=== PATIENT | male | born 1985 | race Caucasian/White ===

== ENCOUNTER 2023-07-30 11:30 | Outpatient (RCR) | payer BC, SELFPAY | END 2023-11-27 23:59 | disposition home or self-care (01) | PROVIDERS: PCP Family Medicine; Visit Provider Family Medicine | DX: M54.50 Low back pain, unspecified (principal); Z51.89 Encounter for other specified aftercare | CPT/HCPCS: 97110; 97140; 97161 ==

== ENCOUNTER 2023-11-11 07:44 | Day surgery (SDC) | payer BC, SELFPAY ==
[2023-11-11] VITALS (35 sets, daily range): BP systolic 109–162; BP diastolic 53–85; PULSE 60–92; RESP 14–18; TEMP 36.5–37.7; O2SAT 93–100; BMI 26.4
--- NOTE | 2023-11-11 08:16 | CT_ITS ---
Patient: STELLA MILLER Facility:?[facility] Patient ID:?[id number] Site Patient ID:?[id number]. Site :?[id number] Study:?CT-Abdomen/Pelvis w/ 98cc [id number] 8:57:36 AM Ordering Physician:Darnell Rhodes Final Report: Indication: Right lower quadrant pain Technique: CT abdomen and pelvis with IV contrast. Multiplanar reformats are included. Contrast: 98 mL Isovue [address] all [address] scans at this facility use dose modulation, iterative reconstruction, and/or weight-based dosing when appropriate to reduce radiation dose to as low as reasonably achievable. Comparison: None Findings: Inflammatory process centered at the ileocecal junction and cecal tip. The terminal ileum is mildly inflamed. The cecum is mildly inflamed. Both the appendiceal base and tip are encased with the inflammation but the midportion of the appendix is actually normal. See this in front of the kidney on series 2, image 68. Overall the inflammatory mass measures about 2 x 2 x 2 centimeters. There is inflammatory stranding without a drainable collection. Away from this area the bowel has a normal appearance. Lung bases are clear. The liver gallbladder and bile ducts are normal. The pancreas is normal. The spleen is normal. The adrenal glands are normal. The kidneys are normal. No cyst or mass. No urinary tract dilatation. The urinary bladder is normal. No pelvic cyst or mass. No adenopathy or ascites. Periumbilical fat containing hernia. No fractures or worrisome focal bony lesions. Impression: Inflammatory process involving the terminal ileum, ileocecal junction, cecum, and appendix base and tip. Unclear if this is an appendix primary problem or terminal ileum primary problem. There are no findings specific to Crohn`s disease. No drainable abscess. Please note that all CT scans at this facility use dose modulation, iterative reconstruction, and/or weight-based dosing when appropriate to reduce radiation dose to as low as reasonably achievable. Dictated by Claudia Gallardo MD @ 11/11/2023 9:12:42 AM Signed by:?Claudia Gallardo MD @11/11/2023 9:12:42 AM (Electronic Signature)
--- NOTE | 2023-11-11 08:17 | ED.GENADULT ---
HPI - General Adult General Chief complaint: Abdominal Pain Stated complaint: abdominal pain Time Seen by Provider: 11/11/23 07:48 History of Present Illness HPI narrative: Patient is a 37 year white male who has a history of ADHD, he is on amphetamine salt, he has had some periumbilical abdominal pain starting on Sunday, this radiated then she down his right lower quadrant. He has had no dysuria frequency or hematuria, no constipation he has had a little bit of loose stool this morning. But no recent diarrhea other than this morning. He has had history of GI ulcers, no abdominal surgery. He reports that when he came in in his car today with his he had some tenderness his belly when they hit bumps. He last ate last evening. Does not have much of an appetite. He has not vomited. Does not feel nauseated currently. He does report the pain is worse than yesterday. No chest pain, no breathing problem, no fevers or chills. He has history tree in the past of lumbar back pain, and stomach ulcers by his report. He also has ADHD. Related Data Home Medications Medication Instructions Recorded Confirmed dextroamphetamine-amphetamine 20 1 tab PO BID 11/11/23 11/11/23 mg tablet sildenafil (pulm.hypertension) 20 20 - 40 mg PO DAILY PRN 11/11/23 11/11/23 mg tablet Previous Rx's Medication Instructions Recorded hydrocodone 5 mg-acetaminophen 325 1 tab PO Q6H PRN pain #15 tabs 11/11/23 mg tablet sennosides 8.6 mg capsule (senna) 8.6 mg PO DAILY PRN constipation 11/11/23 #90 caps Allergies Allergy/AdvReac Type Severity Reaction Status Date / Time No Known Drug Allergies Allergy Verified 07/17/23 13:20 Review of Systems Status of ROS: Reports: 6 or more systems reviewed and unremarkable except as noted in History and below [facility] Medical History Back Pain ?M54.9 - Dorsalgia, unspecified (ICD-10) Social History Smoking Status: Never smoker How often do you have a drink containing alcohol: 4 or more times a week How many standard drinks containing alcohol do you have on a typical day: 3 or 4 How often do you have six or more drinks on one occasion: Weekly AUDIT-C Alcohol total score: 8 Non-prescribed substance use: denies use Exam Narrative: Exam Narrative: Objective: Patient's vital signs are unremarkable and within normal limits He is alert orient x3 HEENT unremarkable neck supple nodes chest clear Heart rhythm regular heart murmur Abdomen benign soft mild right lower quadrant tenderness to palpation and he has got positive guarding with some mild rigidity in the right lower quadrant. Denies symptoms Extremities normal neurologic nonfocal Const: Vital Signs, click to edit/add: Vital Signs - 24 hr 11/11/23 08:02 11/11/23 08:16 11/11/23 08:33 Temperature 98.8 F Pulse Rate 76 Pulse Rate [Pulse Oximeter] 92 Respiratory Rate 16 Blood Pressure Blood Pressure [Ri ght Arm] Blood Pressure [Ri ght Upper Arm] 125/71 Pulse Oximetry 96 97 97 Oxygen Delivery Me thod Room Air 11/11/23 08:45 11/11/23 09:00 11/11/23 09:02 Temperature Pulse Rate 82 77 77 Pulse Rate [Pulse Oximeter] Respiratory Rate Blood Pressure 141/73 H Blood Pressure [Ri ght Arm] Blood Pressure [Ri ght Upper Arm] Pulse Oximetry 96 98 98 Oxygen Delivery Me thod 11/11/23 09:03 11/11/23 09:15 11/11/23 09:17 Temperature 97.7 F Pulse Rate 76 78 Pulse Rate [Pulse Oximeter] Respiratory Rate Blood Pressure Blood Pressure [Ri ght Arm] Blood Pressure [Ri ght Upper Arm] Pulse Oximetry 98 99 Oxygen Delivery Me thod 11/11/23 09:30 11/11/23 09:45 11/11/23 10:00 Temperature Pulse Rate 69 83 68 Pulse Rate [Pulse Oximeter] Respiratory Rate Blood Pressure Blood Pressure [Ri ght Arm] Blood Pressure [Ri ght Upper Arm] Pulse Oximetry 97 95 100 Oxygen Delivery Me thod 11/11/23 10:02 11/11/23 12:44 11/11/23 12:50 Temperature 98.3 F Pulse Rate 79 60 62 Pulse Rate [Pulse Oximeter] Respiratory Rate 14 18 Blood Pressure 120/71 162/82 H 147/76 H Blood Pressure [Ri ght Arm] Blood Pressure [Ri ght Upper Arm] Pulse Oximetry 97 96 96 Oxygen Delivery Me thod Room Air 11/11/23 12:55 11/11/23 13:00 11/11/23 13:05 Temperature Pulse Rate 60 61 61 Pulse Rate [Pulse Oximeter] Respiratory Rate 14 14 15 Blood Pressure 144/72 H 141/70 H 137/71 Blood Pressure [Ri ght Arm] Blood Pressure [Ri ght Upper Arm] Pulse Oximetry 96 96 95 Oxygen Delivery Me thod 11/11/23 13:10 11/11/23 13:15 11/11/23 13:20 Temperature 98.9 F 98.4 F Pulse Rate 60 61 60 Pulse Rate [Pulse Oximeter] Respiratory Rate 14 14 14 Blood Pressure 140/66 H 136/67 Blood Pressure [Ri ght Arm] 142/76 H Blood Pressure [Ri ght Upper Arm] Pulse Oximetry 94 94 97 Oxygen Delivery Me thod Room Air Room Air 11/11/23 13:30 11/11/23 13:45 11/11/23 14:00 Temperature 98.4 F 98.4 F 98.4 F Pulse Rate Pulse Rate [Pulse Oximeter] 63 65 72 Respiratory Rate 14 16 16 Blood Pressure Blood Pressure [Ri ght Arm] 140/75 H 147/67 H 137/63 Blood Pressure [Ri ght Upper Arm] Pulse Oximetry 96 94 93 Oxygen Delivery Me thod Room Air Room Air Room Air 11/11/23 14:15 11/11/23 14:30 11/11/23 15:00 Temperature 98.4 F 98.6 F 98.6 F Pulse Rate Pulse Rate [Pulse Oximeter] 72 77 87 Respiratory Rate 16 16 16 Blood Pressure Blood Pressure [Ri ght Arm] 137/70 140/78 H 143/81 H Blood Pressure [Ri ght Upper Arm] Pulse Oximetry 93 93 93 Oxygen Delivery Me thod Room Air Room Air Room Air 11/11/23 16:00 11/11/23 17:00 11/11/23 18:00 Temperature 98.2 F 99.1 F 99.9 F H Pulse Rate Pulse Rate [Pulse Oximeter] 89 88 92 Respiratory Rate 16 16 16 Blood Pressure Blood Pressure [Ri ght Arm] 145/73 H 136/85 109/62 Blood Pressure [Ri ght Upper Arm] Pulse Oximetry 97 98 96 Oxygen Delivery Me thod Room Air Room Air Room Air 11/11/23 19:00 11/11/23 19:00 11/11/23 20:56 Temperature 99.9 F H 99.0 F 99.0 F Pulse Rate Pulse Rate [Pulse Oximeter] 86 Respiratory Rate 16 Blood Pressure Blood Pressure [Ri ght Arm] 117/67 Blood Pressure [Ri ght Upper Arm] Pulse Oximetry 96 Oxygen Delivery Me thod Room Air 11/11/23 21:45 11/11/23 22:11 11/11/23 22:27 Temperature 99.0 F 99.0 F 99 F Pulse Rate Pulse Rate [Pulse Oximeter] 76 Respiratory Rate 16 Blood Pressure Blood Pressure [Ri ght Arm] 121/53 L Blood Pressure [Ri ght Upper Arm] Pulse Oximetry 96 Oxygen Delivery Me thod Room Air 11/12/23 03:23 11/12/23 03:32 Temperature 99 F 98.8 F Pulse Rate Pulse Rate [Pulse Oximeter] 66 Respiratory Rate 16 Blood Pressure Blood Pressure [Ri ght Arm] 142/62 H Blood Pressure [Ri ght Upper Arm] Pulse Oximetry 97 Oxygen Delivery Me thod Room Air Course Vital Signs Vital signs: Initial Vital Signs Temperature 98.8 F 11/11/23 08:02 Temperature Source Temporal Artery Scan 11/11/23 08:02 Pulse Rate 92 11/11/23 08:02 Respiratory Rate 16 11/11/23 08:02 Blood Pressure 125/71 11/11/23 08:02 Blood Pressure Mean 89 11/11/23 08:02 Blood Pressure Position Sitting 11/11/23 08:02 Pulse Oximetry 96 11/11/23 08:02 Oxygen Delivery Method Room Air 11/11/23 08:02 Vital Signs Temperature 98.8 F 11/11/23 08:02 Pulse Rate 92 11/11/23 08:02 Respiratory Rate 16 11/11/23 08:02 Blood Pressure 125/71 11/11/23 08:02 Pulse Oximetry 96 11/11/23 08:02 Oxygen Delivery Method Room Air 11/11/23 08:02 Temperature 98.8 F 11/12/23 03:32 Pulse Rate 66 11/12/23 03:32 Respiratory Rate 16 11/12/23 03:32 Blood Pressure 142/62 H 11/12/23 03:32 Pulse Oximetry 97 11/12/23 03:32 Oxygen Delivery Method Room Air 11/12/23 03:32 Medications Administered Medications: Generic Name Dose Route Start Last Admin Trade Name Harryq PRN Reason Stop Dose Admin Acetaminophen 650 mg 11/11/23 15:15 11/11/23 19:00 Acetaminophen 325 Mg Tablet PO 650 mg Q4H PRN Administration Pain Hydrocodone Bitart/Acetaminophen 1 - 2 tab 11/11/23 15:15 11/11/23 20:56 Hydrocodone-Acetamin 5-325 Mg 1 Tab PO 2 tab Q4H PRN Administration Pain Hydromorphone HCl 0.1 - 0.5 mg 11/11/23 15:15 11/11/23 17:13 Hydromorphone 0.5 Mg/0.5 Ml Inj IVP 0.5 mg Q2H PRN Administration Pain Lactated Ringer's 1,000 mls @ 125 mls/hr 11/11/23 11:45 11/11/23 22:12 Lactated Ringers 1000 Ml IV 0 mls/hr .Q8H MODE Infusion Piperacillin Sod/Tazobactam 100 mls @ 100 mls/hr 11/11/23 16:00 11/12/23 03:24 Sod 3.375 gm/ Sodium Chloride IVPB 200 mls/hr Q6H MODE Administration Ketorolac Tromethamine 15 mg 11/11/23 15:15 11/12/23 03:23 Ketorolac 15 Mg/Ml Inj IVP 11/16/23 15:14 15 mg Q6H PRN Administration Pain Ondansetron HCl 4 - 8 mg 11/11/23 15:15 11/12/23 03:22 Ondansetron 2 Mg/Ml Inj IVP 4 mg Q8H PRN Administration Nausea And Vomiting Discontinued Medications Generic Name Dose Route Start Last Admin Trade Name Sonu PRN Reason Stop Dose Admin Bupivacaine HCl 30 ml 11/11/23 12:30 11/11/23 12:30 Bupivacaine 0.25% 30 Ml INJECTION 11/11/23 12:31 20 ml ONCE ONE Administration Hydromorphone HCl 1 mg 11/11/23 08:57 11/11/23 09:05 Hydromorphone 0.5 Mg/0.5 Ml Inj IVP 11/11/23 08:58 1 mg ONCE ONE Administration Sodium Chloride 500 mls @ 500 mls/hr 11/11/23 08:15 11/11/23 09:41 0.9 % Sodium Chloride 500 Ml IV 11/11/23 09:14 Infused .Q1H ONE Infusion Piperacillin Sod/Tazobactam 100 mls @ 200 mls/hr 11/11/23 09:38 11/11/23 10:26 Sod 4.5 gm/ Sodium Chloride IVPB 11/11/23 09:39 Infused ONCE ONE Infusion Morphine Sulfate 2 mg 11/11/23 08:30 11/11/23 08:31 Morphine 2 Mg/Ml Inj IVP 11/11/23 08:31 2 mg ONCE ONE Administration Medical Decision Making MDM Narrative Medical decision making narrative: 37-year-old male with 3 day history of abdominal discomfort right lower quadrant pain currently with some indications of mild peritonitis. At this point to rule out NM suspicious for appendicitis. Will check a CT with IV contrast, laboratory studies IV fluid, pain control, will also give the CT as he may have certainly colitis diverticulitis or other intra-abdominal issue, would also get urinalysis. Surgical consult as needed, keep NPO. Addendum: Patient's white count is slightly elevated, he has terminal ileum inflammation as well as base of the appendix inflammation, likely appendicitis. Cannot exclude inflammatory bowel disease. : Our surgeon will come see the patient and likely go to the OR for disposition. She will explain this to the patient. Will start IV Zosyn. Pain control, keep NPO. Admit to same-day surgery and possibly more prolonged admission if needed. Lab Data Labs: Lab Results 11/11/23 11/11/23 Range/Units 08:20 08:23 WBC 14.76 H (4.50-11.00) K/uL RBC 4.96 (4.30-5.90) m/uL Hgb 15.5 (13.5-17.5) gm/dL Hct 45.9 (37.0-53.0) % MCV 93 (80-100) fL MCH 31 (26-34) pg MCHC 34 (32-36) gm/dL RDW Coeff of Hi 12.6 (11.5-15.5) % Plt Count 247 (140-440) K/uL Neut % (Auto) 83.8 H (42.0-72.0) % Lymph % (Auto) 9.1 L (20-44) % [place] % (Auto) 6.4 (0.0-11.0) % Eos % (Auto) 0.5 (0.0-7.0) % Baso % (Auto) 0.1 (0.0-3.0) % Neut # (Auto) 12.40 H (1.7-7.0) K/uL Lymph # (Auto) 1.30 (0.90-2.90) K/uL [place] # (Auto) 0.90 (0.00-0.90) K/UL Eos # (Auto) 0.10 (0.00-0.50) K/uL Baso # (Auto) 0.00 (0.00-0.30) K/uL Abs Immat Gran (auto) 0.00 (0.00-0.30) K/uL Imm/Tot Granulo (auto) 0.1 % Sodium 136 (135-149) mmol/L Potassium 4.4 (3.6-5.1) mmol/L Chloride 103 (96-114) mmol/L Carbon Dioxide 26 (20-32) mmol/L Anion Gap 7 (7-15) mEq/L BUN 14 (5-24) mg/dL Creatinine 0.9 (0.5-1.5) mg/dL Estimated Creat Clear 127.00 Estimated GFR 113 ml/min Glucose 119 H (60-115) mg/dL Calcium 9.5 (8.4-10.6) mg/dL C-Reactive Protein 11.9 H (0.5-1.0) mg/dL Amylase 101 H (18-89) U/L Urine Color Dark yellow (Yellow) Urine Appearance Clear (Clear) Urine pH 8.5 (5.0-8.5) Ur Specific [place] 1.020 (1.000-1.030) Urine Protein Trace A (Negative) Urine Glucose (UA) Negative (Negative) Urine Ketones Negative (Negative) Urine Blood Negative (Negative) Urine Nitrite Negative (Negative) Urine Bilirubin Negative (Negative) Urine Urobilinogen 0.2 (0.2-1.0) Ur Leukocyte Esterase Negative (Negative) Urine RBC 0-2 (0-2) Urine WBC 0-2 (0-5) Ur Squamous Epith Cells Few (None-Few) Urine Bacteria None (None) Discharge Plan Discharge Clinical Impression: Abdominal pain Patient Disposition: Admitted As Observation Condition: Stable Activity Level: No strenuous activity Activity Detail: Activity as tolerated. Avoid strenuous activity. No lifting greater than 20 lb for 2 weeks. Discharge Diet: Regular
[2023-11-11 08:28] LABS: Basophils Percent Auto 0.1 % (0.0-3.0); Eosinophils Percent Auto 0.5 % (0.0-7.0); Hematocrit 45.9 % (37.0-53.0); Hemoglobin* 15.5 gm/dL (13.5-17.5); Immature Granulocytes Pct Auto 0.1 %; Lymphocytes Percent Auto 9.1 % (20-44); Mean Corpuscular HGB Conc 34 gm/dL (32-36); Mean Corpuscular Hemoglobin 31 pg (26-34); Mean Corpuscular Volume 93 fL (80-100); Monocytes Percent Auto 6.4 % (0.0-11.0); Neutrophils Percent Auto 83.8 % (42.0-72.0); Platelet Count* 247 K/uL (140-440); RDW Coefficient of Variation % 12.6 % (11.5-15.5); Red Blood Count 4.96 m/uL (4.30-5.90); White Blood Count* 14.76 K/uL (4.50-11.00)
[2023-11-11 08:29] LABS: Appearance Urine Clear (Clear); Color Urine Dark yellow (Yellow)
[2023-11-11 08:30] LABS: Bilirubin Urine Negative (Negative); Blood Urine Negative (Negative); Glucose Urine Negative (Negative); Ketones Urine Negative (Negative); Leukocyte Esterase Urine Negative (Negative); Nitrite Urine Negative (Negative); Protein Urine Trace (Negative); Urobilinogen Urine 0.2 (0.2-1.0); pH Urine 8.5 (5.0-8.5)
[2023-11-11] MEDS: MORPHINE 2 MG/ML inj IVP (08:31)
[2023-11-11] MEDS: 0.9 % SODIUM CHLORIDE 500 ML 500 ML IV (08:31)
[2023-11-11 08:38] LABS: Slide Review Reflex No
[2023-11-11 08:39] LABS: Chloride* 103 mmol/L (96-114); Potassium* 4.4 mmol/L (3.6-5.1); Sodium* 136 mmol/L (135-149)
[2023-11-11 08:41] LABS: RBC Urine 0-2 (0-2); Squamous Epithelial Cell Urine Few (None-Few); WBC Urine 0-2 (0-5)
[2023-11-11 08:42] LABS: Amylase* 101 U/L (18-89); Anion Gap 7 mEq/L (7-15); Blood Urea Nitrogen* 14 mg/dL (5-24); Carbon Dioxide* 26 mmol/L (20-32); Creatinine* 0.9 mg/dL (0.5-1.5); Estimated Glomerular Filt Rate 113 ml/min
[2023-11-11 08:43] LABS: Calcium* 9.5 mg/dL (8.4-10.6); Glucose* 119 mg/dL (60-115)
[2023-11-11 08:56] LABS: C Reactive Protein* 11.9 mg/dL (0.5-1.0)
[2023-11-11] MEDS: HYDROmorphone 0.5 mg/0.5 ml inj 1 MG IVP (09:05)
[2023-11-11] MEDS: PIPERACILLIN/TAZOBACTAM 4.5 GM in 0.9 % SODIUM CHLORIDE Mini-bag 100 ML IVPB (09:52)
[2023-11-11] MEDS: LACTATED RINGERS 1000 ML 1,000 ML 125 ML IV (11:10)
[2023-11-11] MEDS: BUPIVACAINE 0.25% 30 ML INJECTION (12:30)
--- NOTE | 2023-11-11 12:41 | PM.GSHP ---
History of Present Illness History of Present Illness Date Seen: 11/11/23 Chief complaint: abdominal pain Narrative: Ata Jorgensen is a 37 year old male who presented to the emergency department with complaints of abdominal pain. He states that the pain initially started in the middle of his abdomen and he thought was secondary to stomach ulcers, which he has had in the past. The pain however continued and then moved to the right side. Has increased in intensity and is unlike any pain he has experienced before. He has had a decrease in appetite and some associated nausea, no vomiting. He had diarrhea earlier today. No fevers or chills at home. He has never had surgery before. He denies any personal or family history of inflammatory bowel disease. No problems with anesthesia in his family history. He is a nonsmoker and otherwise healthy. Review of Systems Status of ROS: Reports: 10 or more systems reviewed and unremarkable except as noted in History and below [facility] Medical History Back Pain ?M54.9 - Dorsalgia, unspecified (ICD-10) Social History Smoking Status: Never smoker How often do you have a drink containing alcohol: 4 or more times a week How many standard drinks containing alcohol do you have on a typical day: 3 or 4 How often do you have six or more drinks on one occasion: Weekly AUDIT-C Alcohol total score: 8 Non-prescribed substance use: denies use Meds Home Medications and Allergies Home Medications Medication Instructions Recorded Confirmed Type dextroamphetamine-amphetamine 20 1 tab PO BID 11/11/23 11/11/23 History mg tablet sildenafil (pulm.hypertension) 20 20 - 40 mg PO DAILY PRN 11/11/23 11/11/23 History mg tablet Allergies Allergy/AdvReac Type Severity Reaction Status Date / Time No Known Drug Allergies Allergy Verified 07/17/23 13:20 Exam Narrative: Exam Narrative: General: Alert and oriented, no acute distress Respiratory: Equal breath rise bilaterally, maintained on room air CV: Well perfused Abdomen: Soft, tender palpation right lower quadrant with some guarding, no rebound. Const: Vital Signs, click to edit/add: Vital Signs - 24 hr 11/11/23 08:02 11/11/23 08:16 11/11/23 08:33 Temperature 98.8 F Pulse Rate 76 Pulse Rate [Pulse Oximeter] 92 Respiratory Rate 16 Blood Pressure Blood Pressure [Ri ght Upper Arm] 125/71 Pulse Oximetry 96 97 97 Oxygen Delivery Me thod Room Air 11/11/23 08:45 11/11/23 09:00 11/11/23 09:02 Temperature Pulse Rate 82 77 77 Pulse Rate [Pulse Oximeter] Respiratory Rate Blood Pressure 141/73 H Blood Pressure [Ri ght Upper Arm] Pulse Oximetry 96 98 98 Oxygen Delivery Me thod 11/11/23 09:03 11/11/23 09:15 11/11/23 09:17 Temperature 97.7 F Pulse Rate 76 78 Pulse Rate [Pulse Oximeter] Respiratory Rate Blood Pressure Blood Pressure [Ri ght Upper Arm] Pulse Oximetry 98 99 Oxygen Delivery Me thod 11/11/23 09:30 11/11/23 09:45 11/11/23 10:00 Temperature Pulse Rate 69 83 68 Pulse Rate [Pulse Oximeter] Respiratory Rate Blood Pressure Blood Pressure [Ri ght Upper Arm] Pulse Oximetry 97 95 100 Oxygen Delivery Me thod 11/11/23 10:02 Temperature Pulse Rate 79 Pulse Rate [Pulse Oximeter] Respiratory Rate Blood Pressure 120/71 Blood Pressure [Ri ght Upper Arm] Pulse Oximetry 97 Oxygen Delivery Me thod Results Results Labs: Evidence of leukocytosis, elevated CRP. Abdomen CT scan report/results: report reviewed and image reviewed Progress Note:A&P Assessment and plan (1) Acute appendicitis: Status: Acute Assessment and Plan: The patient presented with a history, exam and imaging findings consistent with acute appendicitis. On CT imaging there is a significant amount of surrounding inflammation around the cecum and terminal ileum, which does increase the patient's risk of needing to convert to an open operation and possible need for ileocecectomy. Included in the differential is also Crohn's disease, although patient does not elicit any significant symptoms of diarrhea/constipation and has no family history. I discussed the treatment options with the patient including non-surgical and surgical options. I recommended laparoscopic appendectomy. The risks of surgery were reviewed with the patient including the risks of bleeding, post-operative wound or intra-abdominal infection, injury to abdominal structures and possible conversion to an open operation. We also discussed anesthetic complications including MN, stroke, respiratory failure and blood clots. The patient voiced an understanding of our conversation, had the opportunity to ask questions, agreed to accept the risks of surgery and asked that we proceed with surgery. -patient to go to the operating room for laparoscopic appendectomy, possible conversion to open, possible ileocecectomy
--- NOTE | 2023-11-11 12:45 | P.GSOP_ITS ---
Operative Note Date of procedure: 11/11/23 Pre-op diagnosis: Acute appendicitis Post-op diagnosis: Same, no evidence of perforation a significant amount of inflammation and fibrinous exudate Type of Procedure: Laparoscopic appendectomy with partial cecectomy Indications: Patient is a 37-year-old male who presented to the emergency department with clinical workup and CT imaging suspicious for acute appendicitis. Risks and benefits of operative intervention were discussed at length with the patient. Risks included but was not limited to: Bleeding, infection, risk of damage to surrounding structures, possible need for additional procedures, possible need to convert to an open operation and postoperative complications such as pneum onia, pulmonary emboli or [place]. All questions and concerns were addressed with the patient agreeing to proceed. Procedure Description: After discussing the risks and benefits of the procedure, the patient signed informed consent.? The operative site was marked and the patient was brought to the operating room and placed on the operating table in supine position.? Care was taken to pad the patient's pressure points.?? The patient was then intubated by anesthesia.?? The operative site was then prepped and draped in the usual sterile fashion.? A time-out was then performed. Entrance to the abdomen was obtained via a 5 mm optical trocar in the left upper quadrant. The abdomen was insufflated and briefly surveyed for any signs of injury. There were none. A 12 mm port was placed lateral to the umbilicus as well as a 5 mm port in the left lower quadrant under direct vision. The patient was then placed in Trendelenburg position with the right side up. The small bowel was inflamed, but not significantly dilated. It was gently moved out of the way and the terminal ileum identified. There was a moderate amount of surrounding inflammation and inflammatory attachments, which were bluntly dissected. The tip of the appendix was brought into view. The mesentery was taken down with the Harmonic device. There was evidence of inflammation thr oughout the body of the appendix and at the base with some cecal involvement. The cecum was gently palpated with laparoscopic devices and appeared inflamed, but with no obvious mass. A small amount of dissection was necessary to free the appendix and cecum from the surrounding pelvic attachments. Two fires of a 60 mm Qustreet-LAVELLE purple load stapler was then used to transect the appendix and a portion of the cecum. The staple lines were inspected for bleeding with a single arterial bleed on the lateral aspect of the staple line. This was controlled with several 5mm clips. The appendix and cecum was then removed from the abdomen using an Endo-Catch bag. The specimen was opened on the back table with evidence of inflammation, but no masses seen. The specimen was then sent to pathology. The 12 mm port site fascia was closed with 0 Vicryl. All other ports were removed under direct visualization. The skin was then closed with absorbable subcuticular suture. Sterile dressings were then applied. Instrument sponge and needle counts were correct at the end of the case. The patient was then woken and transported to the PACU in stable condition. Findings: Inflamed appendix with associated inflammatory changes of the cecum. Anesthesia: GETA Surgeon: Scarlett Day MD Estimated blood loss (mL): 5 Specimen: Appendix Condition: stable Disposition: PACU
--- NOTE | 2023-11-11 12:50 | P.ANES_ITS ---
Anesthesia Charges Start Date/Time Anesthesia Start Date: 11/11/23 Anesthesia Start Time: 11:10 Stop Date/Time Anesthesia Stop Date: 11/11/23 Anesthesia Stop Time: 12:49 Summary Emergency: [facility]
[2023-11-11] MEDS: PIPERACILLIN/TAZOBACTAM 3.375 GM in 0.9 % SODIUM CHLORIDE Mini-bag 100 ML IVPB ×2 (16:04→21:46)
[2023-11-11] MEDS: LACTATED RINGERS 1000 ML 1,000 ML 35 ML IV (16:05)
[2023-11-11] MEDS: KETOROLAC 15 MG/ML inj IVP (16:44)
[2023-11-11] MEDS: HYDROmorphone 0.5 mg/0.5 ml inj IVP (17:13)
[2023-11-11] MEDS: ACETAMINOPHEN 325 MG TABLET 650 MG PO (19:00)
--- NOTE | 2023-11-11 19:35 | PC.NURSE ---
Pt arrived from surgery at 1320. Pt slept for first few hours after surgery. Pt alert and oriented. Pt pleasant and cooperative. Pt had complaints of pain ranging 2-7; see EMAR for intervention. Pt advanced to regular diet and tolerated well. Pt's VSS. Pt urinated. Pt went for walk in hallways x 1 during shift. Pt had family at bedside during shift.
[2023-11-11] MEDS: ONDANSETRON 2 MG/ML inj IVP (20:55)
[2023-11-11] MEDS: HYDROCODONE-ACETAMIN 5-325 MG 1 TAB PO (20:56)
[2023-11-12] MEDS: ONDANSETRON 2 MG/ML inj IVP (03:22)
[2023-11-12 03:23] VITALS: TEMP 37.2
[2023-11-12] MEDS: KETOROLAC 15 MG/ML inj IVP (03:23)
[2023-11-12] MEDS: PIPERACILLIN/TAZOBACTAM 3.375 GM in 0.9 % SODIUM CHLORIDE Mini-bag 100 ML IVPB (03:24)
[2023-11-12 03:32] VITALS: BP 142/62; PULSE 66; RESP 16; TEMP 37.1; O2SAT 97
--- NOTE | 2023-11-12 06:05 | PC.NURSE ---
Pt rested well this night. Up walking halls. Tolerating regular diet. Pain controlled. Steri-strips CDI. Voiding Adequate.
[2023-11-12 08:30] VITALS: BP 126/75; PULSE 53; RESP 18; TEMP 36; O2SAT 94
[2023-11-12] MEDS: HYDROCODONE-ACETAMIN 5-325 MG 1 TAB PO (09:54)
--- NOTE | 2023-11-12 12:16 | PC.NURSE ---
Patient pleasant, alert and oriented. Ambulated and transferred independently. Tolerated regular diet. PRN pain medications given prior to discharge. Patient discharged at 1006. Family wheeled patient out of med/surg in wheelchair.
== END 2023-11-12 10:06 | disposition home or self-care (01) ==
LOC: ED 10:29 → SS 11:19 → MEDSURG 13:55
PROVIDERS: Emergency Provider Family Medicine; PCP Family Medicine; Visit Provider Surgery
PROC: 0DTJ4ZZ Resection of Appendix, Percutaneous Endoscopic Approach (ICD-10-PCS; CPT 44970; principal; 2023-11-11 11:00)
DX: K35.80 Unspecified acute appendicitis (principal)
CPT/HCPCS: 44970; 44238; 00840; 36415; 74177; 80048; 81001; 82150; 85025; 86140; 87086; 88304; 88307; 94761; 99140; 99284; 99285; A9270; J0330; J0665; J1100; J1170; J1171; J1885; J2250; J2270; J2371; J2405; J2543; J2704; J2710; J3010; J7030; J7120; Q9967

== ENCOUNTER 2023-11-13 17:04 | Inpatient (IN) | payer BC, SELFPAY ==
[2023-11-13] VITALS (26 sets, daily range): BP systolic 112–152; BP diastolic 57–94; PULSE 63–95; RESP 18; TEMP 36.8–37.6; O2SAT 95–98; BMI 26.4; BMI 27.7
[2023-11-13 17:40] LABS: Lactate Sepsis w/Reflex* 1.6 mmol/L (0.5-1.9)
[2023-11-13 17:42] LABS: Basophils Absolute Auto 0.02 K/uL (0.00-0.30); Basophils Percent Auto 0.2 % (0.0-3.0); Eosinophils Absolute Auto 0.13 K/uL (0.00-0.50); Eosinophils Percent Auto 1.4 % (0.0-7.0); Hemoglobin* 13.9 gm/dL (13.5-17.5); Immature Granulocytes Abs Auto 0.02 K/uL (0.00-0.30); Immature Granulocytes Pct Auto 0.2 %; Lymphocytes Percent Auto 15.2 % (20-44); Mean Corpuscular HGB Conc 33 gm/dL (32-36); Mean Corpuscular Hemoglobin 31 pg (26-34); Mean Corpuscular Volume 95 fL (80-100); Monocytes Percent Auto 9.2 % (0.0-11.0); Neutrophils Percent Auto 73.8 % (42.0-72.0); Platelet Count* 287 K/uL (140-440); RDW Coefficient of Variation % 12.7 % (11.5-15.5); Red Blood Count 4.44 m/uL (4.30-5.90); White Blood Count* 9.06 K/uL (4.50-11.00)
[2023-11-13 17:43] LABS: Slide Review Reflex No
--- NOTE | 2023-11-13 17:44 | ED_ITS ---
HPI - General Adult General Date Seen: 11/13/23 Chief complaint: Fever Stated complaint: Discharged from [facility] yesterday-101.5F Time Seen by Provider: 11/13/23 17:23 Source: patient, RN notes reviewed and old records reviewed Mode of arrival: ambulatory Limitations: no limitations History of Present Illness HPI narrative: Patient is a 37-year-old male who is status post laparoscopic appendectomy on Sunday, presents to the ER Sunday for evaluation of fever which started today. He has had some body aches, headache. He has a little bit of abdominal pain which started just a little bit ago. He has been eating and drinking okay, appetite perhaps a bit decreased. He did have a normal bowel movement today. He denies urinary symptoms. He has not had chest pain, cough, difficulty jodi thing. No lower extremity swelling or pain. Related Data Home Medications Medication Instructions Recorded Confirmed dextroamphetamine-amphetamine 20 1 tab PO BID 11/11/23 11/11/23 mg tablet sildenafil (pulm.hypertension) 20 20 - 40 mg PO DAILY PRN 11/11/23 11/11/23 mg tablet Previous Rx's Medication Instructions Recorded hydrocodone 5 mg-acetaminophen 325 1 tab PO Q6H PRN pain #15 tabs 11/11/23 mg tablet sennosides 8.6 mg capsule (senna) 8.6 mg PO DAILY PRN constipation 11/11/23 #90 caps ondansetron 4 mg disintegrating 4 mg PO Q6H #20 tabs 11/12/23 tablet Allergies Allergy/AdvReac Type Severity Reaction Status Date / Time No Known Drug Allergies Allergy Verified 11/13/23 19:05 Review of Systems Status of ROS: Reports: 10 or more systems reviewed and unremarkable except as noted in History and below [facility] Medical History Back Pain ?M54.9 - Dorsalgia, unspecified (ICD-10) Social History Smoking Status: Never smoker How often do you have a drink containing alcohol: 4 or more times a week How many standard drinks containing alcohol do you have on a typical day: 3 or 4 How often do you have six or more drinks on one occasion: Weekly AUDIT-C Alcohol total score: 8 Non-prescribed substance use: denies use Exam Narrative: Exam Narrative: Vital signs as noted above. In general, an alert, well-appearing patient. Breathing comfortably. Head: Normocephalic, atraumatic. Eyes: Pupils are equal reactive. Extraocular movements are full. Conjunctivae are normal. ENT: Mucous membranes are moist. Throat is normal. Neck: Supple without lymphadenopathy. Heart: Regular rate and rhythm. No murmur or rub. Lungs: Clear bilaterally. No increased work of breathing, crackles or wheezes. Abdomen: Incisions are healing well, no surrounding erythema or drainage. He has some mild diffuse tenderness in the abdomen, greatest just over the umbilicus. No rebound guarding or rigidity. Extremities: Well perfused. No edema. No calf tenderness. Pulses intact. Neurologic: Patient is alert and oriented to person and place. Speech is fluent. Face is symmetric. Moves all extremities equally. Affect: Normal. Skin: Warm and dry. Well perfused. Const: Vital Signs, click to edit/add: Vital Signs - 24 hr 11/13/23 17:15 11/13/23 17:28 11/13/23 18:00 Temperature 99.3 F 99.7 F H Pulse Rate Pulse Rate [Pulse Oximeter] 95 Respiratory Rate 18 Blood Pressure Blood Pressure [Ri ght Upper Arm] 152/94 H 126/68 Pulse Oximetry 97 [facility] 11/13/23 18:12 11/13/23 18:15 11/13/23 18:30 Temperature Pulse Rate 76 75 79 Pulse Rate [Pulse Oximeter] Respiratory Rate Blood Pressure Blood Pressure [Ri ght Upper Arm] Pulse Oximetry 96 96 96 [facility] 11/13/23 18:50 11/13/23 19:00 11/13/23 19:01 Temperature Pulse Rate 67 68 73 Pulse Rate [Pulse Oximeter] Respiratory Rate Blood Pressure 123/62 Blood Pressure [Ri ght Upper Arm] Pulse Oximetry 96 96 96 [facility] 11/13/23 19:02 11/13/23 19:15 11/13/23 19:30 Temperature Pulse Rate 69 74 79 Pulse Rate [Pulse Oximeter] Respiratory Rate Blood Pressure Blood Pressure [Ri ght Upper Arm] Pulse Oximetry 97 98 97 [facility] 11/13/23 19:45 11/13/23 19:57 11/13/23 20:00 Temperature 98.3 F Pulse Rate 70 66 Pulse Rate [Pulse Oximeter] Respiratory Rate Blood Pressure Blood Pressure [Ri ght Upper Arm] Pulse Oximetry 97 96 Oxygen Delivery Me thod 11/13/23 20:02 11/13/23 20:03 11/13/23 20:15 Temperature Pulse Rate 63 67 66 Pulse Rate [Pulse Oximeter] Respiratory Rate Blood Pressure 122/72 Blood Pressure [Ri ght Upper Arm] Pulse Oximetry 97 96 95 Oxygen Delivery Me thod Documenting provider has reviewed patient's vital signs: yes Course Course ED Course: Patient is a generally healthy 37-year-old, presents for reported fever up to 102, afebrile here, with flu-like symptoms. He does have a little bit of abdominal pain. Will start with labs, IV fluids, check a urine and viral swab. CT of the abdomen to be considered if no alternative explanation for fever. Diagnostic considerations include postoperative complications such as abscess or obstruction, other bacterial infections such as UTI or pneumonia, pneumonia felt to be less likely in the absence of respiratory symptoms and with clear lungs and normal O2 sats. Labs overall look good, his white blood cell count is normal at 9 in minimal left shift with 74% neutrophils. Metabolic panel is normal, LFTs are normal, CRP elevated at 12.8. UA is negative. Viral swab is negative. In the absence of alternate explanation for his fever I did recommend CT scanning. This is read as follows by Radiology:FINDINGS: Lower chest: Unremarkable. Liver: Unremarkable. Normal in size and attenuation. No suspicious masses. Gallbladder and bile ducts: Unremarkable. No stones or inflammation. No biliary dilatation. Pancreas: Unremarkable. No mass or inflammation. Spleen: Unremarkable. Normal in size. No masses. Adrenal glands: Unremarkable. No nodules. Kidneys: Unremarkable. No suspicious masses, stones, or hydronephrosis. GI tract: Postsurgical changes about the cecum. Re-demonstration of inflammation involving the ileocecal region with persistent dilated tubular structure (series 2/image 76), likely residual appendix. Vasculature: Abdominal aorta is normal in caliber. Mesenteric arteries are patent. Lymph nodes: No lymphadenopathy. Peritoneum/Abdominal Wall: Tiny fat containing umbilical hernia. No sign of mass or infiltration. No free air or significant free fluid. Pelvis: Unremarkable. Bones: Unremarkable for age. IMPRESSION: Postsurgical changes about the cecum. Re-demonstration of inflammation involving the ileocecal region with persistent dilated tubular structure, likely residual inflamed appendix. No drainable fluid collections. Recommend correlation with operative report for incomplete appendix removal. Findings discussed with Dr. Santana. Unable to discuss further with [facility] as their phone system is down tonight. Plan for admission overnight. Vital Signs Vital signs: Initial Vital Signs Temperature 99.3 F 11/13/23 17:15 Temperature Source Temporal Artery Scan 11/13/23 17:15 Pulse Rate 95 11/13/23 17:15 Pulse Rhythm Regular 11/13/23 17:15 Respiratory Rate 18 11/13/23 17:15 Blood Pressure 152/94 H 11/13/23 17:15 Blood Pressure Mean 113 H 11/13/23 17:15 Blood Pressure Position Sitting 11/13/23 17:15 Pulse Oximetry 97 11/13/23 17:15 Oxygen Delivery Method Room Air 11/13/23 17:15 Vital Signs Temperature 99.3 F 11/13/23 17:15 Pulse Rate 95 11/13/23 17:15 Respiratory Rate 18 11/13/23 17:15 Blood Pressure 152/94 H 11/13/23 17:15 Pulse Oximetry 97 11/13/23 17:15 Oxygen Delivery Method Room Air 11/13/23 17:15 Temperature 98.3 F 11/13/23 19:57 Pulse Rate 66 11/13/23 20:15 Respiratory Rate 18 11/13/23 17:15 Blood Pressure 122/72 11/13/23 20:02 Pulse Oximetry 95 11/13/23 20:15 Oxygen Delivery Method Room Air 11/13/23 17:15 Medications Administered Medications: Discontinued Medications Generic Name Dose Route Start Last Admin Trade Name Freq PRN Reason Stop Dose Admin Sodium Chloride 1,000 mls @ 1,000 mls/hr 11/13/23 17:30 11/13/23 18:56 0.9 % Sodium Chloride 1000 Ml IV 11/13/23 18:29 Infused .Q1H MODE Infusion Morphine Sulfate 4 mg 11/13/23 19:44 11/13/23 19:50 Morphine 4 Mg/Ml Inj IVP 11/13/23 19:45 4 mg ONCE ONE Administration Medical Decision Making Lab Data Labs: Lab Results 11/13/23 11/13/23 Range/Units 17:30 18:25 WBC 9.06 (4.50-11.00) K/uL RBC 4.44 (4.30-5.90) m/uL Hgb 13.9 (13.5-17.5) gm/dL Hct 42.0 (37.0-53.0) % MCV 95 (80-100) fL MCH 31 (26-34) pg MCHC 33 (32-36) gm/dL RDW Coeff of Hi 12.7 (11.5-15.5) % Plt Count 287 (140-440) K/uL Neut % (Auto) 73.8 H (42.0-72.0) % Lymph % (Auto) 15.2 L (20-44) % Tillman % (Auto) 9.2 (0.0-11.0) % Eos % (Auto) 1.4 (0.0-7.0) % Baso % (Auto) 0.2 (0.0-3.0) % Neut # (Auto) 6.70 (1.7-7.0) K/uL Lymph # (Auto) 1.40 (0.90-2.90) K/uL [place]man # (Auto) 0.80 (0.00-0.90) K/UL Eos # (Auto) 0.13 (0.00-0.50) K/uL Baso # (Auto) 0.02 (0.00-0.30) K/uL Abs Immat Gran (auto) 0.02 (0.00-0.30) K/uL Imm/Tot Granulo (auto) 0.2 % Sodium 134 L (135-149) mmol/L Potassium 3.8 (3.6-5.1) mmol/L Chloride 101 (96-114) mmol/L Carbon Dioxide 22 (20-32) mmol/L Anion Gap 11 (7-15) mEq/L BUN 11 (5-24) mg/dL Creatinine 0.9 (0.5-1.5) mg/dL Estimated Creat Clear 127.00 Estimated GFR 113 ml/min Glucose 111 (60-115) mg/dL Lactate 1.6 (0.5-1.9) mmol/L Calcium 9.4 (8.4-10.6) mg/dL Total Bilirubin 0.5 (0.1-1.5) mg/dL Direct Bilirubin 0.1 (0.0-0.5) mg/dL AST 18 (12-35) U/L ALT 18 (4-50) U/L Alkaline Phosphatase 59 (40-150) U/L C-Reactive Protein 12.8 H (0.5-1.0) mg/dL Total Protein 7.2 (6.0-8.3) g/dL Albumin 4.0 (3.3-5.0) g/dL Urine Color Yellow (Yellow) Urine Appearance Clear (Clear) Urine pH 6.5 (5.0-8.5) Ur Specific [place] 1.010 (1.000-1.030) Urine Protein Negative (Negative) Urine Glucose (UA) Negative (Negative) Urine Ketones Negative (Negative) Urine Blood Negative (Negative) Urine Nitrite Negative (Negative) Urine Bilirubin Negative (Negative) Urine Urobilinogen 0.2 (0.2-1.0) Ur Leukocyte Esterase Negative (Negative) Urine RBC 0-2 (0-2) Urine WBC 0-2 (0-5) Ur Squamous Epith Cells None (None-Few) Urine Bacteria None (None) Urine Mucus Moderate A (None) SARS-CoV-2 (PCR) Negative SARS-CoV-2 (Negative) Influenza Type A (PCR) Negative PCR FLU A (Negative) Influenza Type B (PCR) Negative PCR FLU B (Negative) RSV (PCR) Negative PCR RSV (Negative) Discharge Plan Discharge Prescriptions: No Action dextroamphetamine-amphetamine 20 mg tablet 1 tab PO BID sildenafil (pulm.hypertension) 20 mg tablet 20 - 40 mg PO DAILY PRN hydrocodone-acetaminophen 5-325 mg tablet 1 tab PO Q6H PRN (Reason: pain) Qty: 15 0RF senna 8.6 mg capsule 8.6 mg PO DAILY PRN (Reason: constipation) Qty: 90 0RF ondansetron 4 mg tablet,disintegrating 4 mg PO Q6H Qty: 20 0RF Follow Up/Referrals: Shantanu Ridley MD [Primary Care Provider] -
[2023-11-13] MEDS: 0.9 % SODIUM CHLORIDE 1000 ml 1,000 ML IV (17:57)
[2023-11-13 18:03] LABS: Chloride* 101 mmol/L (96-114)
[2023-11-13 18:04] LABS: Potassium* 3.8 mmol/L (3.6-5.1); Sodium* 134 mmol/L (135-149)
[2023-11-13 18:06] LABS: Creatinine* 0.9 mg/dL (0.5-1.5); Estimated Glomerular Filt Rate 113 ml/min
[2023-11-13 18:07] LABS: Alanine Aminotransferase* 18 U/L (4-50); Alkaline Phosphatase* 59 U/L (40-150); Anion Gap 11 mEq/L (7-15); Aspartate Amino Transferase* 18 U/L (12-35); Bilirubin Direct* 0.1 mg/dL (0.0-0.5); Bilirubin Total* 0.5 mg/dL (0.1-1.5); Blood Urea Nitrogen* 11 mg/dL (5-24); Calcium* 9.4 mg/dL (8.4-10.6); Carbon Dioxide* 22 mmol/L (20-32); Glucose* 111 mg/dL (60-115); Total Protein* 7.2 g/dL (6.0-8.3)
[2023-11-13 18:17] LABS: PCR FLU A Negative PCR FLU A (Negative); PCR FLU B Negative PCR FLU B (Negative); PCR RSV Negative PCR RSV (Negative); SARS PCR* Negative SARS-CoV-2 (Negative)
[2023-11-13 18:21] LABS: C Reactive Protein* 12.8 mg/dL (0.5-1.0)
--- NOTE | 2023-11-13 18:30 | CT_ITS ---
Patient: STELLA MILLER Facility:?[facility] Patient ID:?[id number] Site Patient ID:?[id number]. Site :?[id number] Study:?CT-Abdomen/Pelvis W/ ISOVUE 370-11/13/2023 6:55:40 PM Ordering Physician:RADHA Final Report: INDICATION: Recent appendectomy. Abdominal pain, fever. TECHNIQUE: CT abdomen and pelvis acquired with 100 cc Isovue 370 IV contrast. COMPARISON: November 11, 2023. FINDINGS: Lower chest: Unremarkable. Liver: Unremarkable. Normal in size and attenuation. No suspicious masses. Gallbladder and bile ducts: Unremarkable. No stones or inflammation. No biliary dilatation. Pancreas: Unremarkable. No mass or inflammation. Spleen: Unremarkable. Normal in size. No masses. Adrenal glands: Unremarkable. No nodules. Kidneys: Unremarkable. No suspicious masses, stones, or hydronephrosis. GI tract: Postsurgical changes about the cecum. Re-demonstration of inflammation involving the ileocecal region with persistent dilated tubular structure (series 2/image 76), likely residual appendix. Vasculature: Abdominal aorta is normal in caliber. Mesenteric arteries are patent. Lymph nodes: No lymphadenopathy. Peritoneum/Abdominal Wall: Tiny fat containing umbilical hernia. No sign of mass or infiltration. No free air or significant free fluid. Pelvis: Unremarkable. Bones: Unremarkable for age. IMPRESSION: Postsurgical changes about the cecum. Re-demonstration of inflammation involving the ileocecal region with persistent dilated tubular structure, likely residual inflamed appendix. No drainable fluid collections. Recommend correlation with operative report for incomplete appendix removal. Please note that all CT scans at this facility use dose modulation, iterative reconstruction, and/or weight-based dosing when appropriate to reduce radiation dose to as low as reasonably achievable. Dictated by Eleazar Billy MD @ 11/13/2023 7:34:17 PM Signed by:?Eleazar Billy MD @11/13/2023 7:34:17 PM (Electronic Signature)
[2023-11-13 18:33] LABS: Appearance Urine Clear (Clear); Bilirubin Urine Negative (Negative); Blood Urine Negative (Negative); Color Urine Yellow (Yellow); Glucose Urine Negative (Negative); Ketones Urine Negative (Negative); Leukocyte Esterase Urine Negative (Negative); Nitrite Urine Negative (Negative); Protein Urine Negative (Negative); Urobilinogen Urine 0.2 (0.2-1.0); pH Urine 6.5 (5.0-8.5)
[2023-11-13 18:48] LABS: Mucus Urine Moderate; RBC Urine 0-2 (0-2); WBC Urine 0-2 (0-5)
[2023-11-13] MEDS: MORPHINE 4 MG/ML INJ IVP (19:50)
--- NOTE | 2023-11-13 20:40 | PM.GSHP ---
History of Present Illness History of Present Illness Date Seen: 11/13/23 Chief complaint: Discharged from [facility] yesterday-101.5F Narrative: Ata Jorgensen is a 37 year old male who underwent appendectomy on Sunday or 2 days ago for acute appendicitis. He states that he was kept overnight on antibiotics and discharged yesterday. He was not discharged home on any antibiotics. He was discharged home on Zofran for nausea. He states that since going home he felt better though today he developed worsening pain on the right. This developed over the course of the day. He checked his temperature and it was up to 101. Therefore he came to the emergency department. He has had nausea and has been taking Zofran but has not vomited. He has been eating though his appetite has been decreased. [facility] Medical History Back Pain ?M54.9 - Dorsalgia, unspecified (ICD-10) Social History Smoking Status: Never smoker How often do you have a drink containing alcohol: 4 or more times a week How many standard drinks containing alcohol do you have on a typical day: 3 or 4 How often do you have six or more drinks on one occasion: Weekly AUDIT-C Alcohol total score: 8 Non-prescribed substance use: denies use Meds Home Medications and Allergies Home Medications Medication Instructions Recorded Confirmed Type dextroamphetamine-amphetamine 20 1 tab PO BID 11/11/23 11/11/23 History mg tablet sildenafil (pulm.hypertension) 20 20 - 40 mg PO DAILY PRN 11/11/23 11/11/23 History mg tablet Allergies Allergy/AdvReac Type Severity Reaction Status Date / Time No Known Drug Allergies Allergy Verified 11/13/23 19:05 Exam Narrative: Exam Narrative: General: No acute distress CV: Regular rate and rhythm Respiratory: Breathing nonlabored on room air Abdomen: Incisions are clean and dry. No erythema. He is somewhat tender and the right lower quadrant. There is no guarding or rebound. Const: Vital Signs, click to edit/add: Vital Signs - 24 hr 11/13/23 17:15 11/13/23 17:28 11/13/23 18:00 Temperature 99.3 F 99.7 F H Pulse Rate Pulse Rate [Pulse Oximeter] 95 Respiratory Rate 18 Blood Pressure Blood Pressure [Ri ght Upper Arm] 152/94 H 126/68 Pulse Oximetry 97 Oxygen Delivery Me thod Room Air 11/13/23 18:12 11/13/23 18:15 11/13/23 18:30 Temperature Pulse Rate 76 75 79 Pulse Rate [Pulse Oximeter] Respiratory Rate Blood Pressure Blood Pressure [Ri ght Upper Arm] Pulse Oximetry 96 96 96 Oxygen Delivery Me thod 11/13/23 18:50 11/13/23 19:00 11/13/23 19:01 Temperature Pulse Rate 67 68 73 Pulse Rate [Pulse Oximeter] Respiratory Rate Blood Pressure 123/62 Blood Pressure [Ri ght Upper Arm] Pulse Oximetry 96 96 96 Oxygen Delivery Me thod 11/13/23 19:02 11/13/23 19:15 11/13/23 19:30 Temperature Pulse Rate 69 74 79 Pulse Rate [Pulse Oximeter] Respiratory Rate Blood Pressure Blood Pressure [Ri ght Upper Arm] Pulse Oximetry 97 98 97 Oxygen Delivery Me thod 11/13/23 19:45 11/13/23 19:57 11/13/23 20:00 Temperature 98.3 F Pulse Rate 70 66 Pulse Rate [Pulse Oximeter] Respiratory Rate Blood Pressure Blood Pressure [Ri ght Upper Arm] Pulse Oximetry 97 96 Oxygen Delivery Me thod 11/13/23 20:02 11/13/23 20:03 11/13/23 20:15 Temperature Pulse Rate 63 67 66 Pulse Rate [Pulse Oximeter] Respiratory Rate Blood Pressure 122/72 Blood Pressure [Ri ght Upper Arm] Pulse Oximetry 97 96 95 Oxygen Delivery Me thod Results Results Labs: White blood cell count is 9 from 14 preop. There is still a left shift of 73. CRP is 12.8 from 11.9. Mild hyponatremia with a sodium of 134. The remainder of labs are normal. Abdomen CT scan report/results: report reviewed and image reviewed Additional studies: CT scan of the abdomen pelvis was reviewed. Radiology report states that there are postsurgical changes about the cecum. There is redemonstration of inflammation involving the ileocecal region with a persistent dilated tubular structure, likely residual inflamed appendix. No drainable fluid collections. Recommend correlation with operative report for incomplete appendix removal. Progress Note:A&P Assessment and plan (1) Fever: Status: Acute (2) S/P laparoscopic appendectomy: Status: Acute Plan The patient is a 37-year-old male with fever on postop day 2 status post laparoscopic appendectomy. CT scan shows a persistently dilated structure in the right abdomen. There is concern for persistent appendicitis. The fact that his pain improved postop and the fact that his white blood cell count is better would argue against persistent appendicitis, however given his ongoing pain and fever this will have to be definitively ruled out. Unfortunately, I have not been able to contact the radiologist this evening to discuss, however there is certainly a dilated tubular structure which is more prominent than CT scan from Sunday. I have a call pending with the radiologist. Pathology report has not returned, which would help clarify. I will hopefully be able to discuss with the pathologist in the morning. I did look for the patient's intraoperative photos, however these were not helpful in determining whether not the appendix was removed. Since the patient is currently nontoxic and there is no sign of free air or other signs of perforation, admission with antibiotics overnight until more information can be gained. In the morning I will call pathology to have them exam the specimen. If it does show that it is the appendix then we will plan on continued management with antibiotics. If pathology shows that the tissue that was removed was not the appendix then we will plan on exploration and appendectomy. I will also continue to try to get a hold of Radiology to further discuss. The patient and his are agreeable with this plan. He can have clear liquids now but should be NPO at midnight.
--- NOTE | 2023-11-13 21:48 | ED.NURSE ---
Report called to M/S RN.
[2023-11-13] MEDS: LACTATED RINGERS 1000 ML 1,000 ML 125 ML IV (22:18)
[2023-11-13] MEDS: ERTAPENEM 1 GM in 0.9 % SODIUM CHLORIDE Mini-bag 100 ML IVPB (22:19)
[2023-11-14] VITALS (23 sets, daily range): BP systolic 109–148; BP diastolic 55–94; PULSE 53–107; RESP 12–20; TEMP 36.7–37.8; O2SAT 93–100
[2023-11-14] MEDS: HYDROmorphone 0.5 mg/0.5 ml inj IVP ×7 (01:22→23:48)
[2023-11-14] MEDS: LACTATED RINGERS 1000 ML 1,000 ML 125 ML IV ×4 (05:27→21:48)
[2023-11-14] MEDS: ONDANSETRON 2 MG/ML inj IVP ×2 (05:32→20:20)
[2023-11-14] MEDS: ACETAMINOPHEN 325 MG TABLET 650 MG PO ×2 (05:40→09:41)
--- NOTE | 2023-11-14 08:02 | PM.GSPN ---
Subjective Subjective Date Seen: 11/14/23 Interval history: Ata continues with low-grade fevers overnight. Exam Narrative: Exam Narrative: General: No acute distress CV: Regular rate Const: Vital Signs, click to edit/add: Vital Signs - 24 hr 11/13/23 17:15 11/13/23 17:28 11/13/23 18:00 Temperature 99.3 F 99.7 F H Pulse Rate Pulse Rate [Pulse Oximeter] 95 Pulse Rate [Right Brachial] Respiratory Rate 18 Blood Pressure Blood Pressure [Ri ght Arm] Blood Pressure [Ri ght Upper Arm] 152/94 H 126/68 Pulse Oximetry 97 Oxygen Delivery Me thod Room Air 11/13/23 18:12 11/13/23 18:15 11/13/23 18:30 Temperature Pulse Rate 76 75 79 Pulse Rate [Pulse Oximeter] Pulse Rate [Right Brachial] Respiratory Rate Blood Pressure Blood Pressure [Ri ght Arm] Blood Pressure [Ri ght Upper Arm] Pulse Oximetry 96 96 96 Oxygen Delivery Me thod 11/13/23 18:50 11/13/23 19:00 11/13/23 19:01 Temperature Pulse Rate 67 68 73 Pulse Rate [Pulse Oximeter] Pulse Rate [Right Brachial] Respiratory Rate Blood Pressure 123/62 Blood Pressure [Ri ght Arm] Blood Pressure [Ri ght Upper Arm] Pulse Oximetry 96 96 96 Oxygen Delivery Me thod 11/13/23 19:02 11/13/23 19:15 11/13/23 19:30 Temperature Pulse Rate 69 74 79 Pulse Rate [Pulse Oximeter] Pulse Rate [Right Brachial] Respiratory Rate Blood Pressure Blood Pressure [Ri ght Arm] Blood Pressure [Ri ght Upper Arm] Pulse Oximetry 97 98 97 Oxygen Delivery Me thod 11/13/23 19:45 11/13/23 19:57 11/13/23 20:00 Temperature 98.3 F Pulse Rate 70 66 Pulse Rate [Pulse Oximeter] Pulse Rate [Right Brachial] Respiratory Rate Blood Pressure Blood Pressure [Ri ght Arm] Blood Pressure [Ri ght Upper Arm] Pulse Oximetry 97 96 Oxygen Delivery Me thod 11/13/23 20:02 11/13/23 20:03 11/13/23 20:15 Temperature Pulse Rate 63 67 66 Pulse Rate [Pulse Oximeter] Pulse Rate [Right Brachial] Respiratory Rate Blood Pressure 122/72 Blood Pressure [Ri ght Arm] Blood Pressure [Ri ght Upper Arm] Pulse Oximetry 97 96 95 Oxygen Delivery Me thod 11/13/23 20:30 11/13/23 20:45 11/13/23 21:00 Temperature Pulse Rate 70 64 64 Pulse Rate [Pulse Oximeter] Pulse Rate [Right Brachial] Respiratory Rate Blood Pressure Blood Pressure [Ri ght Arm] Blood Pressure [Ri ght Upper Arm] Pulse Oximetry 98 97 96 Oxygen Delivery Me thod 11/13/23 21:02 11/13/23 21:15 11/13/23 21:30 Temperature Pulse Rate 68 68 63 Pulse Rate [Pulse Oximeter] Pulse Rate [Right Brachial] Respiratory Rate Blood Pressure 112/57 L Blood Pressure [Ri ght Arm] Blood Pressure [Ri ght Upper Arm] Pulse Oximetry 96 98 97 Oxygen Delivery Me thod 11/13/23 21:45 11/13/23 22:03 11/14/23 01:15 Temperature 98.2 F Pulse Rate 64 Pulse Rate [Pulse Oximeter] Pulse Rate [Right Brachial] 66 60 Respiratory Rate 18 16 Blood Pressure Blood Pressure [Ri ght Arm] 128/84 128/77 Blood Pressure [Ri ght Upper Arm] Pulse Oximetry 97 97 98 Oxygen Delivery Me thod Room Air Room Air 11/14/23 01:15 11/14/23 01:15 11/14/23 03:55 Temperature 99.0 F Pulse Rate Pulse Rate [Pulse Oximeter] Pulse Rate [Right Brachial] 60 53 L Respiratory Rate 16 16 Blood Pressure Blood Pressure [Ri ght Arm] 131/84 Blood Pressure [Ri ght Upper Arm] Pulse Oximetry 98 98 Oxygen Delivery Me thod Room Air Room Air 11/14/23 05:40 Temperature 99.2 F Pulse Rate Pulse Rate [Pulse Oximeter] Pulse Rate [Right Brachial] Respiratory Rate Blood Pressure Blood Pressure [Ri ght Arm] Blood Pressure [Ri ght Upper Arm] Pulse Oximetry Oxygen Delivery Me thod Labs/Imaging Labs Labs: White blood cell count remains normal at 8 CRP is down slightly to 10.5 from 14. Progress Note:A&P Assessment and plan (1) Fever: Status: Acute (2) Acute appendicitis: Status: Acute Plan The patient is a 37-year-old male with acute appendicitis who underwent appendectomy, however he returned with fever and abdominal pain, with CT findings concerning for residual appendix. I was able to talk to the pathologist this morning and who was able to look at his slides. There is a small cuff of cecum and possibly a small segment of lumen possibly representing the appendix, however the appendix was not contained within the specimen - it was mostly inflamed tissue. Therefore what we are seeing on CT scan is likely his remaining appendix. I also discussed this with the radiologist. I discussed with the patient and his significant other that I recommended returning to the OR for exploration and appendectomy. We discuss that I would likely perform the surgery laparoscopically. There is a small chance open incision is necessary. He understands that if there is perforation or significant inflammation he may need to stay in the hospital on antibiotics. He is agreeable to proceed and we will plan on surgery urgently this morning.
[2023-11-14 08:17] LABS: Basophils Absolute Auto 0.03 K/uL (0.00-0.30); Basophils Percent Auto 0.3 % (0.0-3.0); Eosinophils Percent Auto 2.3 % (0.0-7.0); Hematocrit 38.5 % (37.0-53.0); Hemoglobin* 12.7 gm/dL (13.5-17.5); Immature Granulocytes Abs Auto 0.02 K/uL (0.00-0.30); Immature Granulocytes Pct Auto 0.2 %; Lymphocytes Percent Auto 19.1 % (20-44); Mean Corpuscular HGB Conc 33 gm/dL (32-36); Mean Corpuscular Hemoglobin 31 pg (26-34); Mean Corpuscular Volume 95 fL (80-100); Monocytes Percent Auto 8.7 % (0.0-11.0); Neutrophils Absolute Auto 6.13 K/uL (1.7-7.0); Neutrophils Percent Auto 69.4 % (42.0-72.0); Platelet Count* 241 K/uL (140-440); RDW Coefficient of Variation % 12.3 % (11.5-15.5); Red Blood Count 4.05 m/uL (4.30-5.90); White Blood Count* 8.84 K/uL (4.50-11.00)
[2023-11-14 08:26] LABS: Slide Review Reflex No
[2023-11-14 08:56] LABS: C Reactive Protein* 10.5 mg/dL (0.5-1.0)
[2023-11-14] MEDS: PIPERACILLIN/TAZOBACTAM 3.375 GM INJ IVPB (11:24)
--- NOTE | 2023-11-14 12:59 | W.ANESCHARGE ---
Anesthesia Charges Start Date/Time Anesthesia Start Date: 11/14/23 Anesthesia Start Time: 11:06 Stop Date/Time Anesthesia Stop Date: 11/14/23 Anesthesia Stop Time: 14:48
--- NOTE | 2023-11-14 13:11 | SUR.OPER ---
THIS PROGRAM DIRECTOR/AIR PERSONALITY CALLED THE PATIENT'S PRIMARY CONTACT (YNES) WITH AN UPDATE ON THE CASE.
--- NOTE | 2023-11-14 14:01 | SUR.OPER ---
THIS RAG PRODUCTION WORKER CALLED THE PATIENT'S PRIMARY CONTACT (YNES) WITH AN UPDATE OF THE PATIENT'S CONDITION AND THE PROGRESS OF THE PROCEDURE.
--- NOTE | 2023-11-14 14:26 | PM.GSPRC ---
Operative Note Date of procedure: 11/14/23 Procedure Description: I assisted Dr. Carrion with patient's laparoscopic converted to open appendectomy and acted as a first officer and flight instructor. Briefly, during laparoscopic appendectomy inflammation was seen in the right abdomen and right upper quadrant. The cecum was not inflamed but there was an inflammatory cavity located just inferior and medial to the cecum slightly posterior to the terminal ileum. No purulent drainage was seen. The fatty inflamed mesenteric fat was dissected off the cecum laterally by Dr. Santana and when that was excised and removed from the abdomen, it was examined on the back table. The specimen was only fat and did not contain the appendix. Due to the difficult nature of the surgery that was performed and a recently explored operative field, decision was made to convert this procedure to open. This was done by Dr. Santana who into the abdomen and placed an Wil retractor in place. Please see her note for more details. When the cecum and terminal ileum were rotated medially, with blunt dissection and palpation were able to identify tubular structure that was very medial to the terminal ileum. This was dissected bluntly and with cautery and had an appearance of appendix. This dissection was carried down caudally until the tip of the appendix was identified. The appendix and mesentery attaching the appendix to the retroperitoneum was divided with cautery and 5 mm clips were used for hemostasis. The appendix was dissected to could circumferentially and was traced down to its base near the cecum. The base of the appendix was just posterior and medial to a previously visualized cecal staple line from his attempted appendectomy 3 days ago. The appendiceal base was clearly visualized and was going into the cecum. The cecum was stapled at its base by Endo-LAVELLE stapler with a purple load. This was then passed off the field to sent to pathology. The inflammatory cavity posterior and medial to the terminal ileum was examined. No small bowel injury was visualized. There was no purulence noted but the small bowel mesentery was thickened and inflamed. The lateral and inferior portion of the cecum had friable appearing fat overlying the cecum. This was the area of dissection laparoscopically. We elected to over-saw this area with Lambert stitches although no serosal tears or cecal injury was seen. The surgical field was then examined for hemostasis and no bleeding was seen. At this time I scrubbed out of the case and Dr. Santana proceeded with abdominal closure. Surgeon: Eduin Owens MD Specimen: Appendix Condition: stable Disposition: no change
--- NOTE | 2023-11-14 14:38 | P.GSOP_ITS ---
Operative Note Date of procedure: 11/14/23 Pre-op diagnosis: Acute appendicitis, status post attempted appendectomy Post-op diagnosis: Same Type of Procedure: Laparoscopic converted to open appendectomy Indications: The patient is a 37-year-old male who developed acute appendicitis. He underwent appendectomy on 11/11/2023. He was admitted overnight and discharged home the following day. On postop day 2 he began having worsening right-sided pain and fevers. He presented to the emergency department. White blood cell count was normal though his CRP remained elevated. CT scan showed what appeared to be a persistently dilated appendix. He was admitted to the hospital overnight on IV antibiotics. In the morning I was able to discuss with pathology who looked at the surgical specimen. The surgical specimen did not contain the appendix, but rather fibrinous tissue and a cuff of cecum. Because of this, I recommended to the patient that we return to the OR for appendectomy. He agreed to proceed. Procedure Description: After discussing the risks and benefits of the procedure, the patient signed informed consent.? The operative site was marked and the patient was brought to the operating room and placed on the operating table in supine position.? Care was taken to pad the patient's pressure points.?? The patient was then intubated by anesthesia.?? The operative site was then prepped and draped in the usual sterile fashion.? A time-out was then performed. Entrance to the abdomen was obtained via a 5 mm optical trocar in the left upper quadrant using the patient's prior incision. The abdomen was insufflated and briefly surveyed for any signs of injury. There were none. A 12 mm port was placed again using the prior incision in the lateral left abdomen inferior to the umbilicus as well as a 5 mm port in the left lower quadrant in the prior incision. Both were done under direct vision. The patient was then placed in Trendelenburg position with the right side up. The small bowel appeared mildly erythematous, however there was no purulence in the abdomen. The small bowel was gently moved out of the way. The cecum was located in the mid right lateral abdomen. This was reflected medially and the prior operative site and the staple line was visible. There was a firm inflammatory mass on the lateral aspect. The terminal ileum was densely adherent to the lateral abdominal wall. The cecum was lifted anteriorly and the mesentery examined. There was no puru lence, no masses and no appendix noted here. I began by mobilizing the terminal ileum from the lateral abdominal wall. The adhesions here were chronic and not related to the recent surgery. This was done with a laparoscopic Metzenbaum scissor. Once I was able to reflect the small bowel medially I noted a small abscess cavity behind the terminal ileum. A small amount of purulence here was suctioned. This was abutting the operative site on the cecum. The cecum was palpated and laterally there was a large amount of inflamed fatty tissue. It was felt as though a this potentially contained the appendix. When the cecum laid in its natural location this tissue was located posteriorly, in the approximate area of the appendix on the CT scan therefore, this was grasped and incised using a scissor. Carefully this was dissected free of the underlying cecum. Dissection was taken through the fat carefully using hook cautery. It appeared as though a tubelike structure was attached to this and this was the and mesoappendix on the cecum. The prior cecal staple line was encountered and at this point the structure was able to be dissected free of the cecum. This was removed from the abdomen using an Endo- Catch bag. This was examined on the back table. It appeared to be inflamed fat. There did not appear to be an appendix contained within. I then examined the abdomen again. The cecum was examined. The appendix was simply not visible. Therefore I elected to convert to an open operation so that I could palpate the area. A midline incision was made just above the umbilicus given the superior location of the cecum. Dissection was taken down to subcutaneous tissue until the fascia was encountered. This was incised using cautery. The peritoneal cavity was entered. At this point the laparoscopic ports were removed. I placed an Wil wound protector in the wound. A Isbell retractor was then used to retract the abdominal wall on the right. I palpated the cecum. This appeared soft and fairly mobile. I took down the hepatic flexure using cautery. Once this was done I could palpate the firm area at the proximal cecum where the prior staple line was and where my area of initial dissection was as well as some firmness posteriorly. I was able to visualize a tubular structure in the retroperitoneum. This was encased within the retroperitoneum. This appeared to be in the approximate location of the appendix on CT scan. At this point Dr. Owens scrubbed in to help given the difficulty of the case. Carefully, using a right angle I dissected the retr operitoneal adhesions of the appendix. These were divided using cautery by Dr. Owens. There were 2 small mesenteric vessels. These were clipped or ligated with ties before dividing. This tubular structure was able to be completely dissected free and found to connect to the cecum. The appendiceal base was just inferior to the prior staple line. The tip was examined. This appeared to have perforated and connected to the small area of abscess that was encountered after mobilization of the terminal ileum. The appendix was then removed from the abdomen and sent to pathology, apparently intact. The surgical site was examined. There was no bleeding noted. The serosa of the terminal ileum was examined. No injury was noted from mobilization. The abscess cavity was examined. This was small and did not appear to contain any retained appendix. This did not connect to the small bowel. The cecum was examined. The staple lines were intact, however the original staple line, was located on a somewhat bulbous portion of cecum. Though no serosal tears or injury were noted, since it had been dissected out and manipulated during this surgery, I felt would be best managed by imbricating the staple line and over-sewing with interrupted 3-0 silk. This was done in a Lembert fashion. Once this was done, the abdomen was irrigated and a 19 Hebrew Matt drain was placed. A small bleeding vessel from the muscle at the drain site inside the abdomen was oversewn with 3-0 Vicryl resulting in hemostasis. Once this was done, the drain was positioned in the right lateral abdomen and retroperitoneum. This was secured in place with a drain stitch. New instruments were obtained and gloves were changed closing the wound. The 12 mm port site fascia was closed with 0 Vicryl. The midline incision was closed with looped 0 Maxon in a running fashion. 3-0 Vicryl dermal stitches were placed followed by 4-0 Monocryl running subcuticular sutures. The port sites were also closed with 4-0 Monocryl. Sterile dressings were then applied. Instrument sponge and needle counts were correct at the end of the case. The patient was then woken and transported to the PACU in stable condition. ? The patient tolerated the procedure well. Findings: Inflammatory fat about the cecum Small abscess cavity at the site of the appendiceal tip Retrocecal appendix. Anesthesia: GETA Surgeon: Cecilia Santana MD Co-Surgeon: Administrative Nursing Supervisor: Dariana Owens MD Estimated blood loss (mL): 50 Specimen: Appendix Condition: stable Disposition: PACU
--- NOTE | 2023-11-14 14:55 | W.PM.NB ---
Nerve Block Nerve Block Time Seen by Provider: 14:45 Date Seen: 11/14/23 Type of block requested by surgeon for post-operative analgesia: TAP Side: bilateral Time out performed: Yes Verification of patient name: Yes Verification of date of : Yes Site marking: site marked Name of person performing procedure: Chin Castro Continuous monitoring Was continuous monitoring of O2 sat, B/P, personnel monitor, recorded every 15 minutes?: Yes Procedure Checklist: sterile prep, needles and gloves Ultrasound guided. Images saved: Yes Medications given in 5ml increments after negative aspiration: Marcaine %: 0.25 mL: 30 Needle gauge: 20 and Exparel mL: 10 Needle gauge: 20 Patient tolerated procedure well: Yes Additional comments: Injected in 5ml increments after negative aspiration Block Charges Block Charge (with Pro Fee): TAP Bilateral Use of Ultrasound Machine for Block: Yes- US Guidance/pain block
--- NOTE | 2023-11-14 14:56 | W.ANESCHARGE ---
Anesthesia Charges Start Date/Time Anesthesia Start Date: 11/14/23 Anesthesia Start Time: 11:06 Stop Date/Time Anesthesia Stop Date: 11/14/23 Anesthesia Stop Time: 14:48
[2023-11-14] MEDS: fentaNYL 100 MCG/2 ML inj 50 MCG IVP ×2 (15:00→15:08)
[2023-11-14] MEDS: MEPERIDINE 25 MG/ML INJ 12.5 MG IVP (15:15)
[2023-11-14] MEDS: KETOROLAC 15 MG/ML inj IVP (17:19)
[2023-11-14] MEDS: SODIUM CHLORIDE 0.9 % (FLUSH) 10 ML SYRINGE IVF ×4 (19:35→23:47)
--- NOTE | 2023-11-14 19:36 | PC.NURSE ---
End of shift - Pt alert, oriented, cooperative. Tolerating NPO diet at start of shift. Reported mild pain in abdomen, specifically R side that increased with movement. Medication given per MAR with verbalized relief. Pt to surgery and returned from PACU at approximately 1530. Pt reported pain of 8-9/10. Medication given per MAR with pt reporting pain improvement. Tolerating ice, fluids, and some solids by mouth. Pt has not been up yet during shift, has not voided or had BM since return from surgery. Family at bedside, pt appears to be resting at end of shift.
[2023-11-14] MEDS: HYDROCODONE-ACETAMIN 5-325 MG 1 TAB PO (20:20)
[2023-11-14] MEDS: ERTAPENEM 1 GM in 0.9 % SODIUM CHLORIDE Mini-bag 100 ML IVPB (21:48)
[2023-11-15] MEDS: HYDROCODONE-ACETAMIN 5-325 MG 1 TAB PO ×4 (00:49→18:24)
[2023-11-15 03:40] VITALS: BP 130/88; PULSE 74; RESP 18; TEMP 37; O2SAT 97
[2023-11-15] MEDS: HYDROmorphone 0.5 mg/0.5 ml inj IVP ×6 (03:49→21:08)
[2023-11-15] MEDS: SODIUM CHLORIDE 0.9 % (FLUSH) 10 ML SYRINGE IVF ×4 (03:50→21:08)
[2023-11-15] MEDS: LACTATED RINGERS 1000 ML 1,000 ML 125 ML IV ×3 (05:15→21:04)
[2023-11-15 07:12] LABS: Basophils Absolute Auto 0.01 K/uL (0.00-0.30); Basophils Percent Auto 0.1 % (0.0-3.0); Eosinophils Absolute Auto 0.05 K/uL (0.00-0.50); Eosinophils Percent Auto 0.5 % (0.0-7.0); Hematocrit 42.5 % (37.0-53.0); Hemoglobin* 14.2 gm/dL (13.5-17.5); Immature Granulocytes Abs Auto 0.03 K/uL (0.00-0.30); Immature Granulocytes Pct Auto 0.3 %; Lymphocytes Absolute Auto 2.28 K/uL (0.90-2.90); Lymphocytes Percent Auto 20.9 % (20-44); Mean Corpuscular HGB Conc 33 gm/dL (32-36); Mean Corpuscular Hemoglobin 31 pg (26-34); Mean Corpuscular Volume 92 fL (80-100); Monocytes Percent Auto 9.7 % (0.0-11.0); Neutrophils Percent Auto 68.5 % (42.0-72.0); Platelet Count* 375 K/uL (140-440); RDW Coefficient of Variation % 12.1 % (11.5-15.5); Red Blood Count 4.61 m/uL (4.30-5.90); White Blood Count* 10.93 K/uL (4.50-11.00)
[2023-11-15 07:13] LABS: Slide Review Reflex No
[2023-11-15 07:35] LABS: C Reactive Protein* 14.5 mg/dL (0.5-1.0)
[2023-11-15 07:42] LABS: Chloride* 104 mmol/L (96-114); Potassium* 4.9 mmol/L (3.6-5.1); Sodium* 134 mmol/L (135-149)
[2023-11-15 07:44] LABS: Creatinine* 0.8 mg/dL (0.5-1.5); Est. Creatinine Clearance* 142.88; Estimated Glomerular Filt Rate 117 ml/min
[2023-11-15 07:45] LABS: Anion Gap 10 mEq/L (7-15); Blood Urea Nitrogen* 14 mg/dL (5-24); Carbon Dioxide* 20 mmol/L (20-32); Glucose* 119 mg/dL (60-115)
[2023-11-15] MEDS: KETOROLAC 15 MG/ML inj IVP ×3 (07:52→20:59)
[2023-11-15 07:56] VITALS: BP 151/95; PULSE 62; RESP 18; TEMP 36.6; O2SAT 99
[2023-11-15] MEDS: ACETAMINOPHEN 325 MG TABLET 650 MG PO (10:37)
[2023-11-15 11:00] VITALS: BP 134/85; PULSE 60; RESP 20; TEMP 36.6; O2SAT 96
--- NOTE | 2023-11-15 11:30 | PC.NURSE ---
Nursing Care Hours: [phone] Pt this shift calm and cooperative. Pain 8/10 beginning of shift. Treated per eMAR pain decreased to 6/10, treated again per eMAR. Pt independent in room. BRIA draining low output. Bandage CDI. VSS. IS 1500 with good effort. tolerating clears. Requested call back from surgeon to discuss advancing diet and adding stool softener.
--- NOTE | 2023-11-15 12:57 | PM.GSPN ---
Subjective Subjective Date Seen: 11/15/23 Interval history: Ata is feeling better today. Was able to get some sleep overnight. Pain is much better controlled this morning. He has been up ambulating in the halls. Voiding without difficulty. Exam Narrative: Exam Narrative: General: No acute distress CV: Regular rate and rhythm Respiratory: Breathing nonlabored on room air, lungs clear to auscultation Abdomen: Soft. Appropriately tender for the postop state. Incisions are clean and dry. Drain with 60 mL output. Const: Vital Signs, click to edit/add: Vital Signs - 24 hr 11/14/23 14:50 11/14/23 14:55 11/14/23 15:00 Temperature 98.2 F Pulse Rate 66 64 63 Pulse Rate [Right Brachial] Respiratory Rate 14 16 16 Blood Pressure 141/83 H 142/89 H 109/55 L Blood Pressure [Ri ght Arm] Pulse Oximetry 95 95 93 Oxygen Delivery Me thod Room Air Room Air Room Air Oxygen Flow Rate 11/14/23 15:05 11/14/23 15:10 11/14/23 15:15 Temperature Pulse Rate 69 58 L 58 L Pulse Rate [Right Brachial] Respiratory Rate 14 12 12 Blood Pressure 134/76 128/78 139/80 Blood Pressure [Ri ght Arm] Pulse Oximetry 93 98 100 Oxygen Delivery Me thod Room Air Nasal Cannula Nasal Cannula Oxygen Flow Rate 2 2 11/14/23 15:20 11/14/23 15:30 11/14/23 15:45 Temperature 99 F 99.4 F 100.0 F H Pulse Rate 68 Pulse Rate [Right Brachial] 68 74 Respiratory Rate 12 16 16 Blood Pressure 137/74 Blood Pressure [Ri ght Arm] 144/89 H 131/75 Pulse Oximetry 99 98 98 Oxygen Delivery Me thod Nasal Cannula Room Air Room Air Oxygen Flow Rate 2 11/14/23 16:00 11/14/23 16:15 11/14/23 16:17 Temperature 98.2 F 98.2 F 99.4 F Pulse Rate 68 Pulse Rate [Right Brachial] 70 89 Respiratory Rate 16 16 16 Blood Pressure Blood Pressure [Ri ght Arm] 138/86 139/84 144/89 H Pulse Oximetry 98 97 98 Oxygen Delivery Me thod Room Air Room Air Room Air Oxygen Flow Rate 11/14/23 17:00 11/14/23 17:30 11/14/23 18:00 Temperature 99.7 F H Pulse Rate Pulse Rate [Right Brachial] 90 95 107 H Respiratory Rate 20 20 16 Blood Pressure Blood Pressure [Ri ght Arm] 148/90 H 140/80 H 135/80 Pulse Oximetry 100 95 95 Oxygen Delivery Me thod Room Air Room Air Room Air Oxygen Flow Rate 11/14/23 19:00 11/14/23 20:00 11/14/23 21:00 Temperature 98.1 F 99.1 F 98.3 F Pulse Rate Pulse Rate [Right Brachial] 88 79 72 Respiratory Rate 18 18 16 Blood Pressure Blood Pressure [Ri ght Arm] 139/94 H 145/94 H 131/77 Pulse Oximetry 96 96 96 Oxygen Delivery Me thod Room Air Room Air Room Air Oxygen Flow Rate 0 0 0 11/14/23 23:30 11/14/23 23:30 11/14/23 23:30 Temperature 98.5 F Pulse Rate Pulse Rate [Right Brachial] 94 94 Respiratory Rate 18 18 Blood Pressure Blood Pressure [Ri ght Arm] 143/81 H Pulse Oximetry 97 97 Oxygen Delivery Me thod Room Air Oxygen Flow Rate 0 11/15/23 03:40 11/15/23 07:56 11/15/23 07:56 Temperature 98.6 F Pulse Rate Pulse Rate [Right Brachial] 74 62 Respiratory Rate 18 18 Blood Pressure Blood Pressure [Ri ght Arm] 130/88 Pulse Oximetry 97 99 Oxygen Delivery Me thod Room Air Oxygen Flow Rate 0 11/15/23 07:56 11/15/23 11:00 Temperature 97.8 F 97.8 F Pulse Rate Pulse Rate [Right Brachial] 62 60 Respiratory Rate 18 20 Blood Pressure Blood Pressure [Ri ght Arm] 151/95 H 134/85 Pulse Oximetry 99 96 Oxygen Delivery Me thod Room Air Room Air Oxygen Flow Rate Labs/Imaging Labs Labs: Hemoglobin stable. White blood cell count normal. Progress Note:A&P Assessment and plan (1) S/P appendectomy: Status: Acute Plan The patient is a 37-year-old male who is postop day 1 status post open appendectomy. He is doing well overall. I encouraged him to continue ambulating and using IS. -full liquid diet okay, however I told patient to go slowly as he will likely have an ileus. -continue IV antibiotics for now; will likely switch to p.o. once he has return of bowel function. -continue drain while inpatient. -Ativan p.r.n. for anxiety
[2023-11-15 15:00] VITALS: BP 147/87; PULSE 60; PULSE 61; RESP 18; TEMP 37.2; O2SAT 98
[2023-11-15] MEDS: ONDANSETRON 2 MG/ML inj IVP (15:26)
[2023-11-15 19:00] VITALS: BP 144/97; PULSE 67; RESP 18; TEMP 36.9; O2SAT 96
--- NOTE | 2023-11-15 20:20 | PC.NURSE ---
Nursing Care Hours: [phone] Pt this shift calm and cooperative. Independent in room. Pain around 6-8/10 treated per eMAR. Advanced to full liquid. Some nausea developed with meals, treated per eMAR and aromatherapy. Bandage CDI, low volume output in BRIA drain. Light serosanguineous in color. Using IS independently. VSS.
[2023-11-15] MEDS: ERTAPENEM 1 GM in 0.9 % SODIUM CHLORIDE Mini-bag 100 ML IVPB (21:00)
[2023-11-15 22:39] VITALS: RESP 18; O2SAT 96
[2023-11-16] MEDS: HYDROmorphone 0.5 mg/0.5 ml inj IVP (01:16)
[2023-11-16] MEDS: ONDANSETRON 2 MG/ML inj IVP (01:21)
[2023-11-16 03:00] VITALS: BP 144/91; PULSE 62; RESP 18; TEMP 36.8; O2SAT 95
[2023-11-16] MEDS: SODIUM CHLORIDE 0.9 % (FLUSH) 10 ML SYRINGE IVF ×3 (05:05→22:42)
[2023-11-16] MEDS: KETOROLAC 15 MG/ML inj IVP ×4 (05:05→22:42)
[2023-11-16] MEDS: LACTATED RINGERS 1000 ML 1,000 ML 125 ML IV (05:27)
--- NOTE | 2023-11-16 05:38 | PC.NURSE ---
[phone] pt able to sleep better this shift, he rated his abd pain 5-8/10, managed with prn pain medication. independent in room, voiding without difficulty, tolerating PO intake. pt reports passing gas, no BM, active bowel sounds all quadrants. BRIA drain output total of 130cc for entire shift.
[2023-11-16 06:42] LABS: Basophils Absolute Auto 0.03 K/uL (0.00-0.30); Basophils Percent Auto 0.4 % (0.0-3.0); Eosinophils Absolute Auto 0.29 K/uL (0.00-0.50); Eosinophils Percent Auto 3.6 % (0.0-7.0); Hematocrit 40.8 % (37.0-53.0); Hemoglobin* 13.6 gm/dL (13.5-17.5); Immature Granulocytes Abs Auto 0.03 K/uL (0.00-0.30); Immature Granulocytes Pct Auto 0.4 %; Lymphocytes Percent Auto 18.8 % (20-44); Mean Corpuscular HGB Conc 33 gm/dL (32-36); Mean Corpuscular Hemoglobin 31 pg (26-34); Mean Corpuscular Volume 94 fL (80-100); Monocytes Percent Auto 9.5 % (0.0-11.0); Neutrophils Percent Auto 67.3 % (42.0-72.0); Platelet Count* 318 K/uL (140-440); Red Blood Count 4.36 m/uL (4.30-5.90); White Blood Count* 8.02 K/uL (4.50-11.00)
[2023-11-16 06:53] LABS: Slide Review Reflex No
[2023-11-16 07:00] VITALS: BP 149/96; PULSE 75; RESP 18; TEMP 36.7; O2SAT 98
[2023-11-16 07:11] LABS: Chloride* 101 mmol/L (96-114); Potassium* 4.3 mmol/L (3.6-5.1); Sodium* 136 mmol/L (135-149)
[2023-11-16 07:13] LABS: Estimated Glomerular Filt Rate 99 ml/min
[2023-11-16 07:14] LABS: Anion Gap 7 mEq/L (7-15); Blood Urea Nitrogen* 14 mg/dL (5-24); Carbon Dioxide* 28 mmol/L (20-32); Glucose* 118 mg/dL (60-115)
[2023-11-16 07:15] LABS: Calcium* 9.1 mg/dL (8.4-10.6)
[2023-11-16 07:40] LABS: C Reactive Protein* 12.9 mg/dL (0.5-1.0)
[2023-11-16 11:00] VITALS: BP 138/90; PULSE 73; RESP 18; TEMP 36.9; O2SAT 96
[2023-11-16 14:36] VITALS: BP 130/84; PULSE 72; RESP 18; TEMP 36.9; O2SAT 98
--- NOTE | 2023-11-16 18:37 | PC.NURSE ---
End of shift note: patient is alert and oriented x4, VSS, Ambulating hallways and tolerating activity well. up to chair for meals and tolerating a soft reg. diet. Patient denies N/V/SOB. Bowel sounds active and per patient he is passing gas. Patient rates pain 5/10 PRN IV Toradol Q6 administered x2 with relief. Patient's 4 lap sites C/D/I, Midline incision C/D/I and ICE pack to Op site. BRIA drain patent and draining serosanguineous liquid prior to BRIA drain removal by DR. Santana. BRIA drain site covered with gauze. Patient voiding well and IV is SL. Plan, possible discharge tomorrow if patient has a bowel movement.
[2023-11-16 19:00] VITALS: BP 134/84; PULSE 77; RESP 18; TEMP 37.4; O2SAT 97
[2023-11-16] MEDS: ACETAMINOPHEN 325 MG TABLET 650 MG PO (19:58)
[2023-11-16] MEDS: SENNOSIDES/DOCUSATE TABLET 1 TAB PO (21:22)
[2023-11-16] MEDS: ERTAPENEM 1 GM in 0.9 % SODIUM CHLORIDE Mini-bag 100 ML IVPB (21:22)
[2023-11-16] MEDS: LORazepam 2 MG/ML inj 0.5 MG IVP (21:23)
[2023-11-16] MEDS: HYDROCODONE-ACETAMIN 5-325 MG 1 TAB PO (21:30)
[2023-11-16 23:00] VITALS: BP 136/81; PULSE 73; RESP 18; TEMP 36.7; O2SAT 96
[2023-11-17 03:00] VITALS: BP 134/96; PULSE 68; RESP 16; TEMP 36.8; O2SAT 96
[2023-11-17] MEDS: HYDROCODONE-ACETAMIN 5-325 MG 1 TAB PO (03:05)
--- NOTE | 2023-11-17 05:25 | PC.NURSE ---
[id number] Pt ind in room, tatiana drain site draining copious amounts of serosanguineous drainage, saturating 4x4 guaze and 5 abd dressings that need to be changed q2-4h throughout the shift. pain managed well with prn pain medications rating 4/10, did have one episode of breakthrough pain where pain increased to 8/10, felt like pressure to mid abd, relief with some ambulation and prn pain medication. tolerating PO intake, passing gas, no BM as of yet, bowel sounds active.
[2023-11-17 07:00] VITALS: BP 132/85; BP 134/96; PULSE 67; RESP 16; TEMP 36.7; O2SAT 95
[2023-11-17] MEDS: FAMOTIDINE 20 MG TABLET PO (09:07)
[2023-11-17] MEDS: SENNOSIDES/DOCUSATE TABLET 1 TAB PO (09:07)
[2023-11-17] MEDS: KETOROLAC 15 MG/ML inj IVP (09:07)
--- NOTE | 2023-11-17 11:01 | P.DS_ITS ---
DS: Providers Provider Date Seen: 11/17/23 Date of admission: 11/14/23 15:38 Primary care physician: Shantanu Ridley MD Admitting Clinician: Cecilia Santana MD Attending Physician on discharge: Cecilia Santana MD DS: Diagnosis Discharge Diagnosis (1) S/P appendectomy: Status: Acute DS: Summary Hospital Course Hospital Course: The patient presented on 11/11 with acute appendicitis. He underwent laparoscopic appendectomy and was discharged home the following day. On 11/13 he presented to the emergency department with worsening right-sided abdominal pain and fever. CT scan was obtained showing what appeared to be residual appendix. He was admitted to the hospital overnight on antibiotics until pathology could be contacted. The following morning, pathology was contacted to look at the original surgical specimen. There was a cuff of cecum and 1 small cross section of what could be appendiceal lumen, however the pathology specimen did not appear to contain the appendix. He was then taken to the OR in the morning on 11/14 for appendectomy. Retrocecal appendix was encountered and the appendix was removed. There was a very small abscess cavity. He was admitted to the hospital postoperatively on IV antibiotics any postoperative drain. He did well postoperatively, having resolution of fever after surgery. He remain inpatient until 11/17/2023 when he had full return of bowel function. On the day of discharge she was tolerating a diet, was afebrile and pain was controlled with oral medication. Of note he did have a fair amount of serous drainage from his drain site. Glue was placed on this on the day of discharge. Time Spent with Patient Time attestation: Total time spent providing and/or coordinating discharge services: Exam Narrative: Exam Narrative: General: NAD Respiratory: Clear to auscultation bilaterally CV: regular rate and rhythm Abdomen: soft, appropriately tender for the post-op state. Incisions with out erythema. Serious drainage on abd over drain site. Const: Vital Signs, click to edit/add: Vital Signs - 24 hr 11/16/23 14:36 11/16/23 14:36 11/16/23 14:36 Temperature 98.5 F Pulse Rate [Pulse Oximeter] 72 Pulse Rate [Right Brachial] 72 Respiratory Rate 18 18 Blood Pressure [Le ft Arm] Blood Pressure [Ri ght Arm] 130/84 Pulse Oximetry 98 98 Oxygen Delivery Me thod Room Air Oxygen Flow Rate 11/16/23 19:00 11/16/23 23:00 11/16/23 23:00 Temperature 99.4 F 98.1 F Pulse Rate [Pulse Oximeter] 77 73 Pulse Rate [Right Brachial] Respiratory Rate 18 18 Blood Pressure [Le ft Arm] Blood Pressure [Ri ght Arm] 134/84 136/81 Pulse Oximetry 97 96 96 Oxygen Delivery Me thod Room Air Room Air Oxygen Flow Rate 0 0 11/17/23 03:00 11/17/23 07:00 11/17/23 07:00 Temperature 98.3 F Pulse Rate [Pulse Oximeter] 68 67 Pulse Rate [Right Brachial] Respiratory Rate 16 16 Blood Pressure [Le ft Arm] Blood Pressure [Ri ght Arm] 134/96 H Pulse Oximetry 96 95 Oxygen Delivery Me thod Room Air Oxygen Flow Rate 0 11/17/23 07:00 Temperature 98.0 F Pulse Rate [Pulse Oximeter] 67 Pulse Rate [Right Brachial] Respiratory Rate 16 Blood Pressure [Le ft Arm] 132/85 Blood Pressure [Ri ght Arm] 134/96 H Pulse Oximetry 95 Oxygen Delivery Me thod Room Air Oxygen Flow Rate DS: Data Data Completed and Pending Labs on day of discharge: Preliminary micro results at discharge 11/13/23 17:30 Blood Culture - Preliminary Blood NO GROWTH AFTER 72 HOURS Discharge Plan Discharge Disposition: Home, Self-Care Date of Admission: 11/14/23 15:38 Primary Care Provider: Shantanu Ridley Condition: Stable Anticipated Discharge Date/Time: 11/17/23 22:20 Discharge Medications: New amoxicillin-pot clavulanate 875-125 mg Tablet 1 tab PO BIDWM Qty: 12 0RF ketorolac 10 mg tablet 10 mg PO TID PRN (Reason: pain) Qty: 10 0RF Continued dextroamphetamine-amphetamine 20 mg tablet 1 tab PO BID sildenafil (pulm.hypertension) 20 mg tablet 20 - 40 mg PO DAILY PRN hydrocodone-acetaminophen 5-325 mg tablet 1 tab PO Q6H PRN (Reason: pain) Qty: 15 0RF senna 8.6 mg capsule 8.6 mg PO DAILY PRN (Reason: constipation) Qty: 90 0RF ondansetron 4 mg tablet,disintegrating 4 mg PO Q6H PRN (Reason: nausea and vomiting) Discharge Orders: Discharge Order (Routine); Ordered 11/17/23 Ordered By: Cecilia Santana Patient Education: Amoxicillin/Clavulanate Potassium (By mouth), Ketorolac (By mouth), General Anesthesia (DC), Laparoscopic Appendectomy (DC), Post-Operative Instructions: Appendectomy Additional Instructions: Wound care: Your sutures are under the skin and will dissolve over time. Leave steri strips (white bandages) over incisions until they fall off (or remove after 7 days). OK to shower but avoid bathing, soaking or swimming for 2 weeks. Pat the incisio ns dry. No need to wash or scrub the area. Apply ice to the area as needed for swelling. It is also OK to use a heating pad if this provides more comfort to you. Pain control: You were prescribed a pain medication by Dr. Day called Hydrocodone/Acetaminophen. This medication contains acetaminophen (Tylenol). If you are taking your prescribed pain pills 4 times daily, do not take additional acetaminophen. As your pain improves, you can try taking acetaminophen instead of the prescribed pain pill. You were also prescribed Ketorolac - this medication is similar to Ibuprofen. Do not take additional Ibuprofen (motrin, aleve, naproxen) when taking this medication. Take an gtti-jwg-[id number] stool softener while you are taking prescribed pain medications to help alleviate constipation. I recommend Senna and/or Colace. Take as directed on package. If you have not had a bowel movement in 3 days, try taking Miralax as directed on the package. All of these are available over the counter. Follow-up Follow up with Dr. Santana in 2-3 weeks Please call if you are experiencing severe pain, nausea, vomiting, difficulty urinating, fever or have not had bowel movement in 4 days after surgery. Activity Level: No strenuous activity Activity Detail: no lifting more than 20 pounds for 4 weeks Discharge Diet: Regular Follow Up Appointments: Cecilia Santana MD [Staff Physician] - 12/05/23 9:15 am ([facility]) Shantanu Ridley MD [Primary Care Provider] - Forms: [employer] Info Instructions
[2023-11-17] MEDS: bisacodyL 10 MG SUPP.RECT PR (11:50)
--- NOTE | 2023-11-17 15:09 | PC.NURSE ---
Discharge: patient discharged to home accompanied by GF. Patient denies N/V/SOB and rated pain 2/10. Dressing to abdomen C/D/I. Patient voided and had a small BM after using suppository. MD notified. Patient's IV removed intact. Belongings sheet and discharge instructions given and signed. patient verbalized understanding of instructions.
--- NOTE | 2023-12-06 13:33 | PM.GSPN ---
Subjective Subjective Date Seen: 11/16/23 Interval history: Ata is doing well. Continues to be up ambulating. Pain is controlled. Exam Narrative: Exam Narrative: General: No acute distress CV: Regular rate and rhythm Respiratory: Breathing nonlabored on room air Abdomen: Soft. Appropriately tender for the postop state. Incisions are clean and dry. Drain with serous output Progress Note:A&P Assessment and plan (1) S/P appendectomy: Status: Acute Plan The patient is a 37-year-old male who is postop day 2 status post open appendectomy. He is doing well overall. I encouraged him to continue ambulating and using IS. -full liquid diet okay. Awaiting return of bowel function. -continue IV antibiotics for now; will likely switch to p.o. once he has return of bowel function. -continue drain while inpatient - since drainage is clearing up will like we be able to discontinue this tomorrow.
== END 2023-11-17 13:55 | disposition home or self-care (01) | DRG 225 ==
LOC: ED 18:17 → MEDSURG 11-14 08:13 → SS 11-14 12:16 → MEDSURG 11-14 14:21 → SS 11-14 16:03 → MEDSURG 11-14 16:03
PROVIDERS: Admitting Provider Surgery; Emergency Provider Emergency Medicine; PCP Family Medicine; Visit Provider Surgery
PROC: 0DTJ4ZZ Resection of Appendix, Percutaneous Endoscopic Approach (ICD-10-PCS; CPT 44970; principal; 2023-11-14 10:30)
DX: K91.89 Other postprocedural complications and disorders of digestive system (principal); K35.33 Acute appendicitis with perforation, localized peritonitis, and gangrene, with abscess; Y65.8 Other specified misadventures during surgical and medical care; R50.82 Postprocedural fever; K36 Other appendicitis; Z53.31 Laparoscopic surgical procedure converted to open procedure; G89.18 Other acute postprocedural pain; M54.9 Dorsalgia, unspecified
CPT/HCPCS: 00840; 36415; 64488; 74177; 76942; 80048; 80076; 81001; 82150; 83605; 85025; 86140; 87040; 87086; 87631; 94761; 99284; 99285; A9270; C9290; J0330; J0665; J1100; J1170; J1171; J1200; J1335; J1630; J1885; J2060; J2175; J2250; J2270; J2371; J2405; J2543; J2704; J2710; J3010; J3490; J7030; J7120; Q9967

== ENCOUNTER 2024-11-10 06:17 | Day surgery (SDC) | payer OTHER, SELFPAY ==
[2024-11-10] VITALS (25 sets, daily range): BP systolic 98–135; BP diastolic 55–80; PULSE 53–91; RESP 16–18; TEMP 36.6–37.3; O2SAT 94–100; BMI 31.4
--- OUTSIDE RECORDS SUMMARY | 2024-11-10 06:20 | XMS_ITS | Clinical Summary ---
Author Organization [employer] [facility] Address [address] [place] [address] Care Team Providers Care Cable Cutter And Swager Name Role Phone Shantanu Ridley MD Primary Care Provider [phone] Allergies Active Allergy Reactions Criticality Noted Date Comments Venom-Honey Bee Edema High 06/25/2021 Medications EPINEPHrine (EPIPEN) 0.3 mg/0.3 mL auto-injector INJECT 0.3MLS INTO THE MUSCLE ONCE NEEDED. MAY REPEAT DOSE IN 5 15 MINUTES FOR SEVERE REACTIONS 1 Active fluticasone (50 mcg per actuation) nasal solution (FLONASE) Inhale 2 Sprays into affected nostril(s). Active sildenafiL, pulm.hypertensio n, (REVATIO) 20 mg tabletIndication s:ED (erectile dysfunction) of organic origin,Fatigue, unspecified type Take 1-2 Tablets (20-40 mg) by mouth once daily if needed (ED). 30 Tablet 2 4 Active traZODone (DESYREL) 50 mg tabletIndication s:Insomnia, unspecified type TAKE 1 TABLET BY MOUTH AT BEDTIME 90 Tablet 4 Active Active Problems Problem Noted Date Diagnosed Date Bee sting reaction 03/02/2022 ADHD (attention deficit hyperactivity disorder) 10/14/2013 Immunizations Name Administration Dates Next Due Hepatitis B (Adult) 01/08/1998,08/03/1997,1996 Influenza, IIV4 10/23/2019,08/17/2014 MMR 03/19/1991,03/23/1987 Oral Polio Vaccine 03/19/1991, 7,04/28/1986,1985 Polio (Oral Polio Vaccine,Unspecified) 03/19/1991,06/22/1987,04/28/1986,1985 Td, Preservative Free (age > = 7 Years) 08/21/2003,04/10/2002 Tdap 04/07/2014, 1,06/22/1987,1985,04/28/1986,02/24/1986 Family History Relation Name Status Comments Brother 1 Alive Brother 2 Alive Father Alive Mother Alive Sister Alive Social History Tobacco Use Types Packs/Day Years Used Date Smoking Tobacco: Never Passive Smoke Exposure: Never Smokeless Tobacco: Never Tobacco Cessation:Counseling Given: Not Answered Alcohol Use Standard Drinks/Week Comments Yes 0 (1 standard drink = 0.6 oz pur e alcohol) PHQ-2 Answer Date Recorded PHQ-2 TOTAL SCORE 0 06/12/2024 Social Connections Answer Date Recorded Do you often feel lonely or isolated from those around you? 0 06/12/2024 Financial Resource Strain Answer Date R ecorded Difficulty of Paying Living Expenses 3 06/12/2024 Difficulty of Paying Living Expenses Not on file 06/12/2024 Food Insecurity Answer Date Recorded Do you worry your food will run out before you are able to buy more? 1 06/12/2024 Transportation Needs Answer Date Record ed Does lack of transportation keep you from medica l appointments? 1 06/12/2024 Does lack of transportation keep you from work, meetings or getting things that you need? 1 06/12/2024 Housing Stability Answer Date Recorded What is your housing situation today? 1 06/12/2024 Utilities Answer Date Recorded Do you have trouble paying f or utilities (for example, heat, electricity, water, phone)? 1 06/12/2024 Sex and Gender Information Value Date Recorded Sex Assigned at Not on file Legal Sex Male 2:50 PM CDT Gender Identity Not on file Sexual Orientation Not on file Obstetrics History Last Filed Vital Signs Vital Sign Reading Time Taken Comments Blood Pressure 110/50 06/12/2024 3:54 PM CDT Pulse 78 06/12/2024 3:54 PM CDT Temperature 37.1 C (98.7 F) 01/01/2024 8:33 AM CDT Respiratory Rate - - Oxygen Saturation 100% 01/01/2024 8:33 AM CDT Inhaled Oxygen Concentration - - Weight 104.7 kg (230 lb 14.4 oz) 06/12/2024 3:54 PM CDT Height 184.2 cm (6' 0.5) 01/01/2024 8:33 AM CDT Body Mass Index 30.89 01/01/2024 8:33 AM CDT Plan of Treatment Health Maintenance Due Date Last Done Comments Tetanus booster 04/07/2024 04/07/2014, 01/2003, 04/10/2002, Additional history exists COVID-19 vaccine series ( season) 2024 01/13/2021, 12/23/2020 Influenza for age 9-49 05/18/2024 10/23/2019, 2013 BMI (ht and wt on same day) for age 18+ 12/31/2024 01/01/2024, 09/19/2023, 08/23/2023, Additional history exists Depression screening for age 12+ 06/12/2025 06/12/2024, 12/26/2022 Lipids for age 35-44 08/23/2028 08/23/2023 Tdap Completed 04/07/2014, 11/1990, 06/22/1987, Additional history exists HIV for age 15-65 Completed 03/12/2023 Hepatitis C screening for age 18-79 Completed 03/12/2023 Pneumococcal series for age 6-49 Aged Out No longer eligible based on patient's age to complete this topic Procedures Procedure Name Priority Date/Time Associated Diagnosis Comments LIPID PANEL W REFLEX MEASURED LDL Routine 08/23/2023 9:33 AM CHILD DAYCARE WORKER Lipid screening LC HIV-1/O/2, 4TH GENERATION Routine 03/12/2023 1:11 PM CDT Screen for STD (sexually transmitted disease) LC HCV ANTIBODY RFX TO QUANT PCR Routine 03/12/2023 1:11 PM CDT Screen for STD (sexually transmitted disease) from Last 3 Months or Most Recently Relevant to Health Maintenance Results * (ABNORMAL) LIPID PANEL W REFLEX MEASURED LDL (08/23/2023 9:33 AM CHILD DAYCARE WORKER) CHOLESTEROL,TOTAL 216(H) 100 - 199 mg/dL 08/23/2023 5:35 PM CHILD DAYCARE WORKER [facility] Comment: Cholesterol, Total Reference Ranges Desirable <200 mg/dL Borderline 200-239 mg/dL High >=240 mg/dL TRIGLYCERIDES 72 <150 mg/dL 08/23/2023 5:35 PM CHILD DAYCARE WORKER [facility] HDL CHOLESTEROL 53 >40 mg/dL 5:35 PM CHILD DAYCARE WORKER [facility] NON-HDL CHOLESTEROL 163(H) <145 mg/dl 08/23/2023 5:35 PM CHILD DAYCARE WORKER [facility] CHOL/HDL RATIO 4.08 <4.50 08/23/2023 5:35 PM CHILD DAYCARE WORKER [facility] LDL CHOLESTEROL 149(H) <=130 mg/dL 08/23/2023 5:35 PM CHILD DAYCARE WORKER [facility] VLDL CHOLESTEROL 14 <=30 mg/dL 08/23/2023 5:35 PM CHILD DAYCARE WORKER [facility] PROVIDER ORDERED STATUS FASTING 08/23/2023 5:35 PM CHILD DAYCARE WORKER [facility] Blood BLOOD SPECIMEN / Unknown Venipuncture / Unknown 08/23/2023 9:33 AM CHILD DAYCARE WORKER 08/23/2023 9:33 AM CHILD DAYCARE WORKER us Shantanu Ridley MD CHEMISTRY Final Result [facility] [address] [place] [address], * LC HCV ANTIBODY RFX TO QUANT PCR (03/12/2023 1:11 PM CDT) HCV Ab Non Reactive Non Reactive 03/14/2023 2:08 PM CDT [facility] Blood BLOOD SPECIMEN / Unknown Venipuncture / Unknown 03/12/2023 1:11 PM CDT 03/12/2023 1:11 PM CDT [facility] ([facility]) - 03/14/2023 2:08 PM CDT Performed at: [address] [place] [id number] Sugar Presser: Bowen Leal MD, Phone: [phone] us Shantanu Ridley MD LABORATORY Final Result Performing Organization Address [facility]/ZIP Co de Phone Number [facility] ([facility]) [address] [place] [address], * LC HIV-1/O/2, 4TH GENERATION (03/12/2023 1:11 PM CDT) [facility] Signature HIV Scr 4th Gen Non Reactive Non Reactive 03/14/2023 10:06 PM CDT [facility] ([facility]) Comment: HIV Negative HIV-1/HIV-2 antibodies and HIV-1 p24 antigen were NOT detected. There is no laboratory evidence of HIV infection. Blood BLOOD SPECIMEN / Unknown Venipuncture / Unknown 03/12/2023 1:11 PM CDT 03/12/2023 1:11 PM CDT [facility] ([facility]) - 03/14/2023 10:06 PM CDT Performed at: [address] [place] [id number] Sugar Presser: Bowen Leal MD, Phone: [phone] us Shantanu Ridley MD LABORATORY Final Result Performing Organization Address City/[facility]/ZIP Co de Phone Number [facility] ([facility]) [address] [place] [address] from Last 3 Months or Most Recently Relevant to Health Maintenance Insurance [facility] Care Teams Cable Cutter And Swager Relationship Specialty [place] [id number] [place] [address] PCP - General Family Practice 06/19/22
--- OUTSIDE RECORDS SUMMARY | 2024-11-10 06:20 | XMS_ITS | Clinical Summary ---
Author Organization [facility] Address [address] [place] [address] Care Team Providers Care Training Executive Name Role Phone No Ref-Primary, Physician Primary Care Provider [facility] Allergies Active Allergy Reactions Criticality Noted Date Comments Bee Venom Swelling High 06/25/2021 Medications multivitamin, therapeutic with minerals (MULTI-VITAMIN) TABS Take 1 tablet by mouth daily 100 tablet 3 3 Active fluticasone (FLONASE) 50 MCG/ACT nasal spray [place] 1-2 sprays into both nostrils daily 6 Active amphetamine-dextro amphetamine (ADDERALL) 20 MG tabletIndications: Attention deficit hyperactivity disorder (ADHD), unspecified ADHD type Take 1 tablet (20 mg) by mouth 2 times daily 60 tablet 2 Active amphetamine-dextro amphetamine (ADDERALL) 20 MG tabletIndications: Attention deficit hyperactivity disorder (ADHD), unspecified ADHD type Take 1 tablet (20 mg) by mouth 2 times daily 60 tablet 2 Active amphetamine-dextro amphetamine (ADDERALL) 20 MG tabletIndications: Attention deficit hyperactivity disorder (ADHD), unspecified ADHD type Take 1 tablet (20 mg) by mouth 2 times daily 60 tablet 2 Active Active Problems Problem Noted Date Diagnosed Date Bee sting reaction 03/02/2022 ADHD (attention deficit hyperactivity disorder) 10/14/2013 Seasonal allergies 04/30/2013 Immunizations Name Administration Dates Next Due COVID-19 MONOVALENT 12+ (Pfizer) 01/13/2021,04/0 04/2021 Hepatitis B, Adult 01/08/1998,08/03/1997, 997 Influenza Vaccine >6 months,quad, PF 10/23/2019, 08/17/2014 OPV, unspecified 03/19/1991, 7,04/28/1986,1985 TD,PF 7+ ([facility]) 08/21/2003,04/10/2002 TDAP (Adacel,Boostrix) 03/19/1991,1986,07/08/1986,1985,02/24/1986 TDAP Vaccine (Boostrix) 04/07/2014 Family History Medical History Relation Comments Family History Negative Brother 1 2 Psychotic Disorder Brother 2 ADHD Family History Negative Father Family History Negative Mother Family History Negative Sister 1 Cancer - colorectal No family hx of Prostate Cancer No family hx of Relation Status Comments Brother 1 Brother 2 Father Alive Mother Alive Sister Social History Tobacco Use Types Packs/Day Years Used Date Smoking Tobacco: Never Cigars Smokeless Tobacco: Former Alcohol Use Standard Drinks/Week Comments Yes 0 (1 standard drink = 0.6 oz pur e alcohol) social (4-5 Drinks per Week) Social Connection and Isolation Panel [NHANES] A nswer Date Recorded In a typical week, how many times do you talk on the phone with family, friends, or neighbors? Three times a week 03/01/2022 How often do you get togethe r with friends or relatives? Three times a week 03/01/2022 How often do you attend [facility] or voodoo services? Never 03/01/2022 Do you belong to any clubs o r organizations such as shinto groups, unions, fraternal or athletic groups, or school groups? No 03/01/2022 Attends Club or Organization Meetings Not on pavel e 03/01/2022 Are you , , di vorced, , never , or living with a partner? 03/01/2022 AUDIT-C Answer Date Recorded Q1: How often do you have a drink containing alc ohol? 2-3 times a week 03/01/2022 Q2: How many drinks containi ng alcohol do you have on a typical day when you are drinking? 1 or 2 03/01/2022 Q3: How often do you have si x or more drinks on one occasion? Less than monthly 03/01/2022 Overall Financial Resource Strain (CARDIA) Answe r Date Recorded How hard is it for you to pa y for the very basics like food, housing, medical care, and heating? Not hard at all 03/01/2022 PHQ-2 Answer Date Recorded PHQ-2 Score 0 03/02/2022 [facility] - Occupational Stress Questionnaire Answer Date Recorded Do you feel stress - tense, restless, nervous, or anxious, or unable to sleep at night because your mind is troubled all the time - these days? Only a little 03/01/2022 Exercise Vital Sign Answer Date Recorde d On average, how many days pe r week do you engage in moderate to strenuous exercise (like a brisk walk)? 5 days 03/01/2022 On average, how many minutes do you engage in exercise at this level? 70 min 03/01/2022 Hunger Vital Sign Answer Date Recorded Within the past 12 months, y ou worried that your food would run out before you got the money to buy more. Never true 03/01/20 22 Within the past 12 months, t he food you bought just didn't last and you didn't have money to get more. Never true 03/01/2022 PRAPARE - Transportation Answer Date Re corded In the past 12 months, has l ack of transportation kept you from medical appointments or from getting medications? No 02/15 In the past 12 months, has l ack of transportation kept you from meetings, work, or from getting things needed for daily living? No 03/01/2022 Housing Stability Vital Sign Answer Jose e Recorded In the last 12 months, was t here a time when you were not able to pay the mortgage or rent on time? No 03/01/2022 In the last 12 months, how many places have you lived? 1 03/01/2022 In the last 12 months, was t here a time when you did not have a steady place to sleep or slept in a custodial (including now)? 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 file Not on file Not on file Last Filed Vital Signs Vital Sign Reading Time Taken Comments Blood Pressure 120/80 01/24/2023 3:54 PM CDT Pulse 80 01/24/2023 3:54 PM CDT Temperature 36.5 C (97.7 F) 01/24/2023 3:54 PM CDT Respiratory Rate 14 01/24/2023 3:54 PM CDT Oxygen Saturation 100% 01/24/2023 3:54 PM CDT Inhaled Oxygen Concentration - - Weight 99.8 kg (220 lb) 03/02/2022 8:55 AM CDT Height 183.5 cm (6' 0.25) 03/02/2022 8:55 AM CD T Body Mass Index 29.63 03/02/2022 8:55 AM CDT Plan of Treatment Health Maintenance Due Date Last Done Comments ANNUAL REVIEW OF HM ORDERS 03/01/2022 03/01/2021 YEARLY PREVENTIVE VISIT 03/02/2023 03/02/2022 GLUCOSE 03/01/2024 03/01/2021 DTAP/TDAP/TD IMMUNIZATION (4 - Td or Tdap) 04/07/2024 04/07/2014, 08/21/2003, 04/10/2002, Additional history exists COVID-19 Vaccine ( season) 2024 01/13/2021, 12/23/2020 INFLUENZA VACCINE (#1) 2024 , 01/13/2019 (Declined), 08/17/2014 PHQ-2 (once per calendar year) 2024 03/02/2022, 03/01/2021, 08/31/2020, Additional history exists ADVANCE CARE PLANNING 03/02/2027 03/02/2022 ZOSTER IMMUNIZATION (1 of 2) 12/19/2035 RSV VACCINE (1 - 1-dose 75+ series) 2060 HEPATITIS B IMMUNIZATION Completed 998, 08/03/1997, 07/03/1997 HEPATITIS C SCREENING Discontinued HIV SCREENING Discontinued HPV IMMUNIZATION Aged Out No longer e ligible based on patient's age to complete this topic MENINGITIS IMMUNIZATION Aged Out No l onger eligible based on patient's age to complete this topic Pneumococcal Vaccine: Pediatrics (0 to 5 Years) and At-Risk Patients (6 to 49 Years) Aged Out No longer eligible based on patient's age to complete this topic RSV MONOCLONAL ANTIBODY Aged Out No l onger eligible based on patient's age to complete this topic Procedures Procedure Name Priority Date/Time Associated Diagnosis Comments GLUCOSE Routine 03/01/2021 9:35 AM CDT Screening for diabetes mellitus from Last 3 Months or Most Recently Relevant to Health Maintenance Results * (ABNORMAL) Glucose (03/01/2021 9:35 AM CDT) Glucose 108(H) 70 - 99 mg/dL 03/01/2021 1:01 PM CDT [facility] Comment:Fasting specimen Blood 03/01/2021 9:35 AM CDT 03/01/2021 9:36 AM CDT us Shantanu Ridley MD LAB - BLOOD ORDERABLES Final Result [facility] [address] [place] [address] from Last 3 Months or Most Recently Relevant to Health Maintenance Insurance [facility] STATE Care Teams Training Executive Relationship Specialty Start Date End Date No Ref-Primary, Physician PCP - General 01/24/23 Clinic - [facility] [id number] [place], [place] [id number] Assigned PCP 10/11/23
--- OUTSIDE RECORDS SUMMARY | 2024-11-10 06:20 | XMS_ITS | Encounter Summary ---
Author Organization [facility] Address [address] [place] [id number] Care Team Providers Care Instrument Lens Grinder Name Role Phone Shantanu Ridley MD Primary Care Provider + [phone] Shantanu Ridley MD Unavailable [phone] No Ref-Primary, Physician Primary Care Provider [facility] Unavailabl e Encounter Details Date Type Department Care Team (Late st Contact Info) Description 07/12/2020 MyC Medical Advice [facility] [address] [place] [address] [place] [address] [place], [place] [id number] Social History Tobacco Use Types Packs/Day Years Used Date Smoking Tobacco: Never Cigars Smokeless Tobacco: Former Alcohol Use Standard Drinks/Week Comments Yes 0 (1 standard drink = 0.6 oz pur e alcohol) social PHQ-2 Answer Date Recorded PHQ-2 Score 0 09/25/2018 Sex and Gender Information Value Date Recorded Sex Assigned at Not on file Legal Sex Male 11:15 AM CDT Gender Identity Not on file Sexual Orientation Not on file documented as of this encounter Plan of Treatment Not on file documented as of this encounter Visit Diagnoses Not on filedocumented in this encounter Additional Health Concerns Infection Onset Date Last Indicated Resolved Time Rule Out COVID-19 09/05/2022 09/05/2022 09/06/2022:52 AM 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
[2024-11-10] MEDS: 0.9 % SODIUM CHLORIDE 500 ML 500 ML 100 ML IV (06:30)
[2024-11-10] MEDS: SODIUM CHLORIDE 0.9 % (FLUSH) 10 ML SYRINGE IVF (06:40)
--- NOTE | 2024-11-10 07:12 | W.PM.H&PU ---
History & Physical Update History & Physical Update H&P Reviewed and patient assessed: No changes noted
[2024-11-10] MEDS: CEFAZOLIN 2 GM INJ IVP (07:46)
--- NOTE | 2024-11-10 09:01 | SUR.OPER ---
Significant other updated via phone call per MD request.
[2024-11-10] MEDS: BUPIVACAINE 0.25% 30 ML INJECTION (10:53)
--- NOTE | 2024-11-10 11:06 | P.GSOP_ITS ---
Operative Note Date of procedure: 11/10/24 Pre-op diagnosis: Ventral incisional hernia Post-op diagnosis: Ventral incisional hernia Type of Procedure: Open retro rectus repair of ventral incisional hernia, 6 x 9 cm with Phasix mesh Indications: The patient is a 38-year-old male who underwent an open procedure for appendectomy approximately 1 year ago. He developed discomfort and later noticed a bulge in the area. On exam he was found to have a hernia. We discussed options and he elected to proceed with repair. Procedure Description: After discussing the risks and benefits of the procedure, the patient signed informed consent.? The operative site was marked and the patient was brought to the operating room and placed on the operating table in supine position.? Care was taken to pad the patient's pressure points.?? The patient was then intubated by anesthesia.?? The operative site was then prepped and draped in the usual sterile fashion.? A time-out was then performed. Enters the abdomen was gained via Visiport technique in the left upper quadrant. The layers of the abdomen were visualized as I passed through. Once abdomen was entered it was insufflated and briefly surveyed for signs of injury. There were none. I then placed 2 additional ports, both 5 mm in the left lateral and lower abdomen under direct vision. The patient was noted to have an incisional hernia and on the right aspect of this in the right upper abdomen there were adhesions between the small bowel and the abdominal wall. These were taken down sharply using Metzenbaum scissors. I examined the hernia defect. I measured this. It measured at least 5 cm wide. I then noted that it appeared to measure 9 cm long as there were 2 smaller defects at the superior and inferior aspects. Given the large gap, I elected to proceed with a hybrid approach to the hernia repair to hopefully better facilitate primary fascial closure. Therefore I made an incision along the patient's midline incision and dissected down through the hernia sac. When the abdomen was entered, I pulled the loop of bowel that I had dissected free from the abdominal wall and examined it. There was no sign of serosal or bowel injury. This was placed back into the abdomen. I then identified the fascial edges. I grasped these between 2 Talya clamps. They did not come together particularly easily. I then began dissecting the hernia sac from the subcutaneous space. I created a preperitoneal space. As I was dis secting here, I discovered an additional hernia defect at the umbilicus and, as mentioned the fascial gap still appeared to be quite far and again came together with some tension. I divided scar tissue in the subcutaneous space with hope that the fascia would come mobilize and together primarily more easily. However, I was not comfortable with the amount of mobility I had with the fascia. Therefore I elected to perform a retro rectus repair in order to be able to mobilize fascia to close primarily around the mesh. I began on the right by incising the posterior sheath just lateral to midline. Once I entered the sheath, using a right angle I carefully extended this incision down the length of the hernia. Carefully I the rectus fibers from the posterior she, attempting to preserve the vasculature coming in laterally. Superior to the hernia sac, I incised the rectus fascia posteriorly, leaving the anterior midline intact. I did this to facilitate mesh overlap superiorly. I then turned my attention inferiorly, approaching the umbilicus. Again there was noted to be a fascial defect at the umbilicus. I incised the posterior sheath on either side of this, leaving the midline intact below the umbilicus. I dissected the preperitoneal fat away from the midline, leaving a space to place mesh. Once this was done, I obtained a piece of Phasix mesh, 15 x 20 cm. This fit into the preperitoneal space. I then closed the peritoneum with a running 3-0 Vicryl suture. I was then able to close the posterior sheath with a running 0 PDS suture. This was slightly under tension however I was able to get the tissue together. I then placed the Phasix mesh back in the space. Using 2 0 PDS suture, I affixed the mesh in location using suture at 4 corners, this was then passed through the fascia and abdominal wall using Valentín-Daria device passed through stab incisions. The mesh was pulled flat and the suture secured. Once this was done, the anterior fascia was closed with a running 0 PDS suture. This included the fascial defect at the umbilicus as well. This came together without undue tension. Once this was done, the abdomen was insufflated under low pressure - the peritoneum covered the repair. and the ports were removed and the abdomen desufflated. The port site incisions were closed with interrupted 4-0 Monocryl. The midline incision was closed with 3-0 Vicryl dermal and 4-0 Monocryl running subcuticular suture. The stab incisions were closed with glue. Glue was placed over the other incisions as well. Local anesthetic was injected into the upper abdominal incisions. Anesthesia will plan on tap block. ? The patient was then woken and transported to the recovery area in stable condition. ? The patient tolerated the procedure well. Findings: 6 x 9 cm ventral incisional hernia with [place] cheese defect noted. Implants: Phasix mesh Surgeon: Cecilia Santana MD Estimated blood loss (mL): 50 Condition: stable Disposition: PACU
--- NOTE | 2024-11-10 11:24 | P.ANES_ITS ---
Anesthesia Charges Start Date/Time Anesthesia Start Date: 11/10/24 Anesthesia Start Time: 07:25 Stop Date/Time Anesthesia Stop Date: 11/10/24 Anesthesia Stop Time: 11:23 Coding CPT Codes CPT Codes: ANESTH REPAIR OF HERNIA - 45334 ([id number]) P1 - NORMAL HEALTHY PATIENT, QK - DINING CAR CONDUCTOR 2-4 CNCRNT ANES PROC, QX - TOP LIFT NAILER SVTristan W/ MED DIRECTION
--- NOTE | 2024-11-10 11:24 | W.PM.NB ---
Nerve Block Nerve Block Time Seen by Provider: 11:10 Date Seen: 11/10/24 Type of block requested by surgeon for post-operative analgesia: TAP Side: bilateral Time out performed: Yes Verification of patient name: Yes Verification of date of : Yes Site marking: site marked Name of person performing procedure: Matthew Continuous monitoring Was continuous monitoring of O2 sat, B/P, monitoring engineer, recorded every 15 minutes?: Yes Procedure Checklist: sterile prep, needles and gloves Ultrasound guided. Images saved: Yes Medications given in 5ml increments after negative aspiration: Marcaine %: 0.25 mL: 30 Needle gauge: 20 and Exparel mL: 10 Patient tolerated procedure well: Yes Additional comments: Needle noted between internal oblique and transversus abdominus. Local spread visualized Block Charges Block Charge (with Pro Fee): TAP Bilateral Use of Ultrasound Machine for Block: Yes- US Guidance/pain block
--- NOTE | 2024-11-10 11:24 | W.ANESCHARGE ---
Anesthesia Charges Start Date/Time Anesthesia Start Date: 11/10/24 Anesthesia Start Time: 07:25 Stop Date/Time Anesthesia Stop Date: 11/10/24 Anesthesia Stop Time: 11:23 Coding CPT Codes CPT Codes: ANESTH REPAIR OF HERNIA - 71652 ([id number]) P1 - NORMAL HEALTHY PATIENT, QK - FLATTENING MACHINE OPERATOR 2-4 CNCRNT ANES PROC, QX - MATERIAL LISTER SVTristan W/ MED DIRECTION
[2024-11-10] MEDS: fentaNYL 100 MCG/2 ML inj 50 MCG IVP ×3 (11:30→11:40)
--- NOTE | 2024-11-10 11:48 | P.ANES_ITS ---
Anesthesia Charges Start Date/Time Anesthesia Start Date: 11/10/24 Anesthesia Start Time: 07:25 Stop Date/Time Anesthesia Stop Date: 11/10/24 Anesthesia Stop Time: 11:23 Coding CPT Codes CPT Codes: ANESTH REPAIR OF HERNIA - 60800 ([id number]) P1 - NORMAL HEALTHY PATIENT, QK - MANAGER CAR 2-4 CNCRNT ANES PROC, QX - ROLL THREADER OPERATOR SVTristan W/ MED DIRECTION
--- NOTE | 2024-11-10 11:48 | W.ANESCHARGE ---
Anesthesia Charges Start Date/Time Anesthesia Start Date: 11/10/24 Anesthesia Start Time: 07:25 Stop Date/Time Anesthesia Stop Date: 11/10/24 Anesthesia Stop Time: 11:23 Coding CPT Codes CPT Codes: ANESTH REPAIR OF HERNIA - 16597 ([id number]) P1 - NORMAL HEALTHY PATIENT, QK - CHIMNEY SWEEPER 2-4 CNCRNT ANES PROC, QX - GUN STOCK CHECKER SVTristan W/ MED DIRECTION
[2024-11-10] MEDS: HYDROmorphone 0.5 mg/0.5 ml inj IVP ×2 (12:41→21:13)
[2024-11-10] MEDS: LACTATED RINGERS 1000 ML 1,000 ML 125 ML IV ×2 (12:44→23:08)
[2024-11-10] MEDS: HYDROCODONE-ACETAMIN 5-325 MG 1 TAB PO ×3 (13:55→23:02)
[2024-11-10] MEDS: KETOROLAC 15 MG/ML inj IVP (17:08)
--- NOTE | 2024-11-10 19:30 | PC.NURSE ---
End of shift: Pt arrived to the unit @ 1200. Pt AxOx4, pleasant, and cooperative to cares. VSS on RA. LSCTA. CMS intact. Abdomen warm to touch, dressing remain CDI with dry blood surrounding lap sites. Abdominal binder in place. SBA to the bathroom. Pt tolerating regular diet/fluids well. Pt reported sharp RUQ pain that would occur every few minutes. Pediatric Medical Assistant attempted PRN medication and warming blankets. Surgeon notified and gave no further intervention. Pain subsided over the first 6 post-op hours. Pt reported PRN [place] was most beneficial. Pain is continued to be assessed, monitored, and currently controlled. Bladder scan completed by manual writer due to Pt not voidin found. Pt then used the urinal and had an output of 200. Pt using call light appropriately. Fluids running @ 125 ml/hr. at bedside with patient, call light within reach.
[2024-11-11] MEDS: KETOROLAC 15 MG/ML inj IVP ×3 (01:26→16:12)
[2024-11-11] MEDS: HYDROmorphone 0.5 mg/0.5 ml inj IVP ×2 (01:27→05:55)
[2024-11-11 01:43] VITALS: BP 99/59; PULSE 85; RESP 18; TEMP 37.3; O2SAT 96
[2024-11-11 02:45] VITALS: TEMP 37.3
[2024-11-11] MEDS: HYDROCODONE-ACETAMIN 5-325 MG 1 TAB PO ×4 (02:45→14:33)
--- NOTE | 2024-11-11 03:40 | PC.NURSE ---
Pt was up walking halls this night. Pain present but controlled with medications. Afebrile. Wounds CDI. Ab binder in place. Pt up IND. No N/V. Pleasant and cooperative.
[2024-11-11] MEDS: LACTATED RINGERS 1000 ML 1,000 ML 125 ML IV (05:56)
[2024-11-11 06:26] LABS: Basophils Absolute Auto 0.01 K/uL (0.00-0.30); Basophils Percent Auto 0.1 % (0.0-3.0); Eosinophils Absolute Auto 0.06 K/uL (0.00-0.50); Eosinophils Percent Auto 0.7 % (0.0-7.0); Hematocrit 37.6 % (37.0-53.0); Hemoglobin* 12.3 gm/dL (13.5-17.5); Immature Granulocytes Abs Auto 0.06 K/uL (0.00-0.30); Immature Granulocytes Pct Auto 0.7 %; Lymphocytes Absolute Auto 1.97 K/uL (0.90-2.90); Mean Corpuscular HGB Conc 33 gm/dL (32-36); Mean Corpuscular Hemoglobin 31 pg (26-34); Mean Corpuscular Volume 95 fL (80-100); Monocytes Percent Auto 8.1 % (0.0-11.0); Neutrophils Absolute Auto 6.12 K/uL (1.7-7.0); Neutrophils Percent Auto 68.4 % (42.0-72.0); Platelet Count* 214 K/uL (140-440); RDW Coefficient of Variation % 12.7 % (11.5-15.5); Red Blood Count 3.95 m/uL (4.30-5.90); White Blood Count* 8.94 K/uL (4.50-11.00)
[2024-11-11 06:28] LABS: Slide Review Reflex No
[2024-11-11 06:35] VITALS: TEMP 37.3
[2024-11-11 09:00] VITALS: BP 106/61; PULSE 69; RESP 16; TEMP 37; O2SAT 96
--- NOTE | 2024-11-11 09:39 | PM.GSPN ---
Subjective Subjective Date Seen: 11/11/24 Interval history: Overnight Ata was complaining of some chest pain which was attributed to the abdominal binder. He did require IV Dilaudid overnight. He stated that when the band was around this was causing some shortness of breath. He feels better now. No nausea. Exam Narrative: Exam Narrative: General: No acute distress CV: Regular rate and rhythm Respiratory: Clear to auscultation bilaterally Abdomen: incisions clean, dry and intact without erythema. Abdomen is appropriately tender for the postoperative state. Const: Vital Signs, click to edit/add: Vital Signs - 24 hr 11/10/24 11:20 11/10/24 11:25 11/10/24 11:30 Temperature 98.7 F Pulse Rate 66 63 68 Pulse Rate [Pulse Oximeter] Respiratory Rate 16 16 16 Blood Pressure 135/77 135/71 129/80 Blood Pressure [Le ft Arm] Blood Pressure [Ri ght Arm] Pulse Oximetry 95 95 94 Oxygen Delivery Me thod Room Air Room Air Room Air Oxygen Flow Rate 11/10/24 11:35 11/10/24 11:40 11/10/24 11:45 Temperature Pulse Rate 72 63 53 L Pulse Rate [Pulse Oximeter] Respiratory Rate 16 16 16 Blood Pressure 130/72 123/64 120/67 Blood Pressure [Le ft Arm] Blood Pressure [Ri ght Arm] Pulse Oximetry 96 96 95 Oxygen Delivery Me thod Room Air Nasal Cannula Nasal Cannula Oxygen Flow Rate 2 2 11/10/24 11:50 11/10/24 12:00 11/10/24 12:15 Temperature 98.5 F 98.3 F 98.4 F Pulse Rate 57 L 57 L 58 L Pulse Rate [Pulse Oximeter] Respiratory Rate 16 16 18 Blood Pressure 119/63 116/68 120/60 Blood Pressure [Le ft Arm] Blood Pressure [Ri ght Arm] Pulse Oximetry 96 95 97 Oxygen Delivery Me thod Nasal Cannula Room Air Room Air Oxygen Flow Rate 2 11/10/24 12:30 11/10/24 12:45 11/10/24 13:00 Temperature 98.2 F 98.4 F 98.6 F Pulse Rate 61 64 82 Pulse Rate [Pulse Oximeter] Respiratory Rate 18 16 16 Blood Pressure 118/62 120/70 119/62 Blood Pressure [Le ft Arm] Blood Pressure [Ri ght Arm] Pulse Oximetry 98 94 95 Oxygen Delivery Me thod Room Air Room Air Room Air Oxygen Flow Rate 11/10/24 13:30 11/10/24 14:00 11/10/24 15:00 Temperature 98.1 F 98.9 F 98.8 F Pulse Rate 60 69 67 Pulse Rate [Pulse Oximeter] Respiratory Rate 16 18 16 Blood Pressure 118/79 122/68 119/75 Blood Pressure [Le ft Arm] Blood Pressure [Ri ght Arm] Pulse Oximetry 94 94 95 Oxygen Delivery Me thod Room Air Room Air Room Air Oxygen Flow Rate 11/10/24 16:00 11/10/24 17:00 11/10/24 18:00 Temperature 98.6 F 98.7 F 98.4 F Pulse Rate 61 63 91 Pulse Rate [Pulse Oximeter] Respiratory Rate 16 16 18 Blood Pressure 125/65 120/70 122/76 Blood Pressure [Le ft Arm] Blood Pressure [Ri ght Arm] Pulse Oximetry 100 99 97 Oxygen Delivery Me thod Room Air Room Air Room Air Oxygen Flow Rate 11/10/24 18:00 11/10/24 19:37 11/10/24 19:38 Temperature 99.2 F 99.2 F Pulse Rate Pulse Rate [Pulse Oximeter] 67 Respiratory Rate 18 16 Blood Pressure Blood Pressure [Le ft Arm] 118/72 Blood Pressure [Ri ght Arm] Pulse Oximetry 97 96 Oxygen Delivery Me thod Room Air Room Air Oxygen Flow Rate 11/10/24 22:50 11/10/24 22:51 11/10/24 23:02 Temperature 99.2 F Pulse Rate Pulse Rate [Pulse Oximeter] 67 Respiratory Rate 16 16 Blood Pressure Blood Pressure [Le ft Arm] Blood Pressure [Ri ght Arm] Pulse Oximetry 96 Oxygen Delivery Me thod Room Air Oxygen Flow Rate 2 11/10/24 23:22 11/11/24 01:43 11/11/24 02:45 Temperature 98.8 F 99.2 F 99.2 F Pulse Rate Pulse Rate [Pulse Oximeter] 64 85 Respiratory Rate 16 18 Blood Pressure Blood Pressure [Le ft Arm] Blood Pressure [Ri ght Arm] 98/55 L 99/59 L Pulse Oximetry 98 96 Oxygen Delivery Me thod Room Air Room Air Oxygen Flow Rate 11/11/24 06:35 Temperature 99.2 F Pulse Rate Pulse Rate [Pulse Oximeter] Respiratory Rate Blood Pressure Blood Pressure [Le ft Arm] Blood Pressure [Ri ght Arm] Pulse Oximetry Oxygen Delivery Me thod Oxygen Flow Rate Labs/Imaging Labs Labs: Hemoglobin today is 12.3. Imaging Imaging: EKG ordered for chest pain overnight showed normal sinus rhythm. Progress Note:A&P Assessment and plan (1) Incisional hernia: Status: Acute Plan The patient is a 38-year-old male who is postop day 1 status post retrorectus incisional hernia repair with mesh. He was admitted for pain control given the scope of the hernia repair. He is feeling better this morning. We are working on alternating Toradol and hydrocodone. -okay to advance diet as tolerated -encourage IS and ambulation. -have obtained a larger abdominal binder as the 1 that was on the patient was too tight. -if patient unable to achieve pain control on oral medications then will keep overnight again inpatient.
[2024-11-11 11:00] VITALS: BP 119/69; PULSE 73; RESP 18; TEMP 37.4; O2SAT 95
--- NOTE | 2024-11-11 12:38 | PM.DS1 ---
DS: Providers Provider Date Seen: 11/11/24 Primary care physician: Shantanu Ridley MD Attending Physician on discharge: Cecilia Santana MD DS: Diagnosis Discharge Diagnosis (1) Status post repair of ventral hernia: Status: Acute DS: Summary Hospital Course Hospital Course: The patient is a 38-year-old male who underwent elective ventral hernia repair on 11/10/2024. Postoperatively he was admitted for pain control given the scope of the repair. On postop day 1 he was doing well and had transition to oral pain medication. The patient was able to ambulate and tolerate a diet. He was deemed safe for discharge home. Time Spent with Patient Time attestation: Total time spent providing and/or coordinating discharge services: Exam Narrative: Exam Narrative: Please see progress note from 11/11/24 with detailed exam Const: Vital Signs, click to edit/add: Vital Signs - 24 hr 11/10/24 12:45 11/10/24 13:00 11/10/24 13:30 Temperature 98.4 F 98.6 F 98.1 F Pulse Rate 64 82 60 Pulse Rate [Pulse Oximeter] Respiratory Rate 16 16 16 Blood Pressure 120/70 119/62 118/79 Blood Pressure [Le ft Arm] Blood Pressure [Ri ght Arm] Pulse Oximetry 94 95 94 Oxygen Delivery Me thod Room Air Room Air Room Air Oxygen Flow Rate 11/10/24 14:00 11/10/24 15:00 11/10/24 16:00 Temperature 98.9 F 98.8 F 98.6 F Pulse Rate 69 67 61 Pulse Rate [Pulse Oximeter] Respiratory Rate 18 16 16 Blood Pressure 122/68 119/75 125/65 Blood Pressure [Le ft Arm] Blood Pressure [Ri ght Arm] Pulse Oximetry 94 95 100 Oxygen Delivery Me thod Room Air Room Air Room Air Oxygen Flow Rate 11/10/24 17:00 11/10/24 18:00 11/10/24 18:00 Temperature 98.7 F 98.4 F Pulse Rate 63 91 Pulse Rate [Pulse Oximeter] Respiratory Rate 16 18 18 Blood Pressure 120/70 122/76 Blood Pressure [Le ft Arm] Blood Pressure [Ri ght Arm] Pulse Oximetry 99 97 97 Oxygen Delivery Me thod Room Air Room Air Room Air Oxygen Flow Rate 11/10/24 19:37 11/10/24 19:38 11/10/24 22:50 Temperature 99.2 F 99.2 F Pulse Rate Pulse Rate [Pulse Oximeter] 67 67 Respiratory Rate 16 16 Blood Pressure Blood Pressure [Le ft Arm] 118/72 Blood Pressure [Ri ght Arm] Pulse Oximetry 96 Oxygen Delivery Me thod Room Air Oxygen Flow Rate 11/10/24 22:51 11/10/24 23:02 11/10/24 23:22 Temperature 99.2 F 98.8 F Pulse Rate Pulse Rate [Pulse Oximeter] 64 Respiratory Rate 16 16 Blood Pressure Blood Pressure [Le ft Arm] Blood Pressure [Ri ght Arm] 98/55 L Pulse Oximetry 96 98 Oxygen Delivery Me thod Room Air Room Air Oxygen Flow Rate 2 11/11/24 01:43 11/11/24 02:45 11/11/24 06:35 Temperature 99.2 F 99.2 F 99.2 F Pulse Rate Pulse Rate [Pulse Oximeter] 85 Respiratory Rate 18 Blood Pressure Blood Pressure [Le ft Arm] Blood Pressure [Ri ght Arm] 99/59 L Pulse Oximetry 96 Oxygen Delivery Me thod Room Air Oxygen Flow Rate 11/11/24 09:00 11/11/24 09:00 11/11/24 09:00 Temperature 98.6 F Pulse Rate Pulse Rate [Pulse Oximeter] 69 69 Respiratory Rate 16 16 16 Blood Pressure Blood Pressure [Le ft Arm] Blood Pressure [Ri ght Arm] 106/61 Pulse Oximetry 96 96 Oxygen Delivery Me thod Room Air Room Air Oxygen Flow Rate 11/11/24 11:00 Temperature 99.3 F Pulse Rate Pulse Rate [Pulse Oximeter] 73 Respiratory Rate 18 Blood Pressure Blood Pressure [Le ft Arm] Blood Pressure [Ri ght Arm] 119/69 Pulse Oximetry 95 Oxygen Delivery Me thod Room Air Oxygen Flow Rate DS: Data Data Completed and Pending Completed studies during hospitalization: Procedures Inspection of Peritoneal Cavity, Percutaneous Endoscopic Approach (11/14/23) Introduction of Adhesion Barrier into Peritoneal Cavity, Open Approach (11/14/23) Resection of Appendix, Open Approach (11/14/23) Labs on day of discharge: Labs from last 24 hours 11/11/24 06:14 WBC 8.94 RBC 3.95 L Hgb 12.3 L Hct 37.6 MCV 95 MCH 31 MCHC 33 RDW Coeff of Hi 12.7 Plt Count 214 Neut % (Auto) 68.4 Lymph % (Auto) 22.0 [place] % (Auto) 8.1 Eos % (Auto) 0.7 Baso % (Auto) 0.1 Neut # (Auto) 6.12 Lymph # (Auto) 1.97 [place] # (Auto) 0.70 Eos # (Auto) 0.06 Baso # (Auto) 0.01 Abs Immat Gran (auto) 0.06 Imm/Tot Granulo (auto) 0.7 Discharge Plan Discharge Disposition: Home w/ Parent or Adult Discharging Surgeon: Cecilia Santana Follow-Up Appointment: Dr. Santana, [facility], December 02 @ 9:00 am Prescriptions: New hydrocodone-acetaminophen 5-325 mg Tablet 1 - 2 tab PO Q6H PRN (Reason: Pain) Qty: 30 0RF ketorolac 10 mg tablet 10 mg PO TID PRN (Reason: pain) 4 Days Qty: 12 0RF No Action No Known Home Medications Activity Level: Activity as Tolerated and No strenuous activity Activity Detail: No lifting more than 20 lb for 6 weeks Discharge Diet: Regular Patient Instructions: Hydrocodone/Acetaminophen (By mouth) (Vicodin, Purlear), Ketorolac (By mouth) (Toradol), Laparoscopic Herniorrhaphy (DC), Post-Operative Instructions: Hernia Repair Additional Instructions: Wound care: Your sutures are under the skin and will dissolve over time. Leave glue in place until it falls off. OK to shower but avoid bathing, soaking or swimming for 2 weeks. Pat the incisions dry. No need to wash or scrub the area. Apply ice to the area as needed for swelling. It is also OK to use a heating pad if this provides more comfort to you. Wear the abdominal binder your up in about for the 1st 2 weeks. This will help support your abdominal wall. Pain control: You were prescribed two pain medications. Take Ketorolac first for pain. Do not take additional Ibuprofen or Naproxen (Motrin, Aleve, Advil, etc) while you are taking this medication. Take Hydrocodone/Acetaminophen for severe pain. Avoid taking Acetaminophen (Tylenol) while you are taking this medication. As your pain improves, you can try taking acetaminophen instead of the prescribed pain pills. Take an [id number] stool softener while you are taking prescribed pain medications to help alleviate constipation. I recommend Senna and/or Colace. Take as directed on package. If you have not had a bowel movement in 3 days, try taking Miralax as directed on the package. All of these are available over the counter. Follow-up Follow up with Dr. Santana in 2-3 weeks Please call if you are experiencing severe pain, nausea, vomiting, difficulty urinating, fever or have not had bowel movement in 4 days after surgery. Follow-up: Cecilia Santana MD [Staff Physician] - 12/02/24 9:00 am (Appointment @ the [facility] ) Shantanu Ridley MD [Primary Care Provider] - Discharge Orders: Discharge Order (Routine); Ordered 11/11/24 Ordered By: Cecilia Santana
--- NOTE | 2024-11-11 14:40 | PC.NURSE ---
Patient is afebrile, lung sounds clear, bowels sounds active, patient reports started passing gas this afternoon. Tolerating regular diet with no nausea and vomiting. Lap sites and midline incision are intact with no drainage. Midline incision loosely covered with gauze. New abdominal binder placed. Up independently in hallway ambulating frequently. Pain currently controlled with PRN [place] and Toradol. Patient resting now and may discharge this evening if pain continues to be under control.
[2024-11-11 15:00] VITALS: BP 107/60; PULSE 56; PULSE 73; RESP 16; RESP 18; TEMP 36.7; O2SAT 98
--- NOTE | 2024-11-11 17:23 | PC.NURSE ---
DC: Pt alert, oriented and vitally stable. Pain rated 6/10, prn Toradol given. DC information given to pt and spouse, topics including medications, wound care and pain management. IV removed tip intact. Pt DC home with spouse at 1658.
== END 2024-11-11 16:58 | disposition home or self-care (01) ==
LOC: OR 10:04 → MEDSURG 11:58
PROVIDERS: PCP Family Medicine; Visit Provider Surgery
PROC: 0WQF4ZZ Repair Abdominal Wall, Percutaneous Endoscopic Approach (ICD-10-PCS; CPT 49595; principal; 2024-11-10 07:30)
DX: K43.2 Incisional hernia without obstruction or gangrene (principal); G89.18 Other acute postprocedural pain; R07.9 Chest pain, unspecified
CPT/HCPCS: 49595; 00752; 36415; 64488; 76942; 85025; A4467; A9270; C1781; J0665; J0666; J0690; J1100; J1171; J1885; J2405; J2704; J2710; J3010; J7030; J7120